=== PATIENT | male | born 1955 | race Caucasian/White ===

== ENCOUNTER 2021-04-03 20:35 | Inpatient (IN) ==
--- NOTE | 2021-04-03 20:43 | Emergency Department Note ---
Impression & Plan Elevated troponin I level, Viral illness, Fever, CKD (chronic kidney disease) ED Provider Note NAME: JACIEL TAY AGE: 66 SEX: M : 1955 ARRIVES VIA: Ambulance INFORMANT: Patient, ED PROVIDER(S): Joshua Garcia MD Chief Complaint: Chills, rigors HPI: He does present from [facility] due to concern for chills and rigors. The patient does complain of some general malaise weakness and fatigue ongoing since Friday and is progressively gotten worse. Patient is vaccinated for COVID-19 as well as the flu. The patient does complain of a productive cough but is unsure if it is discolored. Patient does have history of smoking but no formal history of any heart or lung disease. The patient did have low-grade temperature and was noted to have chills. Patient denies any chest pains or shortness of breath. Patient denies any nausea or vomiting. ROS: See HPI for pertinent positives and negatives. A total of 10 systems were reviewed and otherwise negative. Past medical history: See below Surgical history: See below Social history: See below Physical Exam: GENERAL: Fatigued in appearance, NAD, wearing glasses, wearing a mask, non- toxic. EYE EXAM: Normal conjunctiva. PERRL, no anisocoria and EOM's grossly intact w/o pain. NECK: Supple, no nuchal rigidity, no adenopathy, non-tender. No signs of meningismus. LUNGS: Scant wheezes. Normal chest wall mechanics. HEART: NSR, no MRG. ABDOMEN: Abdomen soft, non-tender, normo-active bowel sounds, no masses, no rebound or guarding. BACK: No CVA TTP. SKIN: No rashes and no bruising. UPPER EXTREMITIES: Upper extremities are grossly normal. LOWER EXTREMITIES: Grossly normal, no edema. Negative Homans' sign bilaterally. NEURO EXAM: A&O x3, cranial nerves II-XII grossly intact, normal speech, moves all 4 extremities on command w/o issue. Differential diagnoses: Viral syndrome, otitis, pharyngitis, pneumonia, influenza, meningitis, urinary tract infection, sepsis, bacteremia, as well as other pathologies. Course: Patient was seen and evaluated the bedside. Full history physical exam was performed. EKG interpreted by me Normal sinus rhythm, rate of 91, normal intervals, borderline elevation in V2 but not in contiguous leads, T wave inversion in 3 and aVF. Imaging Studies: 1 view chest x-ray No obvious consolidation pneumothorax or pleural effusion. Cardiac monitoring: An order was placed for continuous cardiac monitoring. The monitor shows a rate of 88 with sinus rhythm. MDM: Patient did present with a viral type symptoms. Blood work was obtained and the patient was given antipyretics. Patient does have a white count of 13 with a virtually normal hemoglobin at 13.8. Kidney function shows a creatinine of 2 unsure as to baseline. The patient does have prerenal azotemia. Very mild hypermagnesemia. Troponin I of 0.188. The patient did have a slight elevation in V2 but not in contiguous leads there is no obvious concavity. Patient does not complain of chest pains or shortness of breath the patient has complained more of viral type symptoms with a low-grade fever and rigors. I did speak with the on-call hospitalist and the patient was admitted to the medicine service Dr. Diaz. Covid RSV and flu negative. Chest x-ray by my read does not show any obvious pneumonia. Patient was ordered full dose aspirin as a precaution. On repeat evaluation of the patient the patient had no chest pain or shortness of breath. Past Med/Surg History Medical History No pertinent past medical history Surgical History No pertinent past surgical history Social History Smoking Status: Former smoker Tobacco Type: Cigarettes Feels Safe at Home: Yes Immunizations: Vaccinated for COVID-19 as well as the flu Allergies Allergies Allergy/AdvReac Type Severity Reaction Status Date / Time morphine Allergy Unknown Unknown Verified 04/03/21 21:37 Home Meds Home Medications Medication Instructions Recorded Confirmed acetaminophen 500 mg tablet 500 mg PO TID PRN 04/03/21 04/03/21 cyanocobalamin (vitamin B-12) 1,000 mcg SUBCUT WK 04/03/21 04/03/21 1,000 mcg/mL injection solution ibuprofen 600 mg tablet 600 mg PO TID PRN 04/03/21 04/03/21 tamsulosin 0.4 mg capsule 0.4 mg PO HS 04/03/21 04/03/21 Results & Data (ED) Vital Signs Vital Signs - 24 hr 04/03/21 20:52 04/03/21 20:55 04/03/21 21:00 Temperature 37.6 C H Temperature Source Oral Pulse Rate 90 92 H 90 Pulse Rate from SpO2 Sensor Respiratory Rate 20 24 23 Respiratory Effort / Characteristics Non-Labored Respiratory Depth Normal Blood Pressure 112/57 L 109/59 L Blood Pressure Mean 75 75 Pulse Oximetry 93 93 91 Oxygen Delivery Method Room Air Room Air Room Air Sepsis Recent Fever Within 48 Hours Yes Sepsis New/Unexplained Change in Mental Status No Sepsis Action Taken by Nursing No Action Required 04/03/21 21:02 04/03/21 21:10 04/03/21 21:20 Temperature Temperature Source Pulse Rate 88 84 Pulse Rate from SpO2 Sensor Respiratory Rate 23 18 Respiratory Effort / Characteristics Respiratory Depth Blood Pressure Blood Pressure Mean Pulse Oximetry 92 92 91 Oxygen Delivery Method Room Air Room Air Room Air Sepsis Recent Fever Within 48 Hours Sepsis New/Unexplained Change in Mental Status Sepsis Action Taken by Nursing 04/03/21 21:30 04/03/21 21:40 04/03/21 21:50 Temperature Temperature Source Pulse Rate 90 87 85 Pulse Rate from SpO2 Sensor Respiratory Rate 23 23 21 Respiratory Effort / Characteristics Respiratory Depth Blood Pressure Blood Pressure Mean Pulse Oximetry 93 92 93 Oxygen Delivery Method Room Air Room Air Room Air Sepsis Recent Fever Within 48 Hours Sepsis New/Unexplained Change in Mental Status Sepsis Action Taken by Nursing 04/03/21 22:00 04/03/21 22:02 04/03/21 22:10 Temperature Temperature Source Pulse Rate 83 83 Pulse Rate from SpO2 Sensor Respiratory Rate 22 21 Respiratory Effort / Characteristics Respiratory Depth Blood Pressure 105/56 L Blood Pressure Mean 72 Pulse Oximetry 91 98 92 Oxygen Delivery Method Room Air Room Air Room Air Sepsis Recent Fever Within 48 Hours Sepsis New/Unexplained Change in Mental Status Sepsis Action Taken by Nursing 04/03/21 22:20 04/03/21 22:30 04/03/21 22:40 Temperature Temperature Source Pulse Rate 82 84 80 Pulse Rate from SpO2 Sensor Respiratory Rate 20 21 23 Respiratory Effort / Characteristics Respiratory Depth Blood Pressure Blood Pressure Mean Pulse Oximetry 92 93 92 Oxygen Delivery Method Room Air Room Air Room Air Sepsis Recent Fever Within 48 Hours Sepsis New/Unexplained Change in Mental Status Sepsis Action Taken by Nursing 04/03/21 22:50 04/03/21 23:00 04/03/21 23:10 Temperature Temperature Source Pulse Rate 79 77 77 Pulse Rate from SpO2 Sensor Respiratory Rate 18 21 24 Respiratory Effort / Characteristics Respiratory Depth Blood Pressure 94/50 L Blood Pressure Mean 64 Pulse Oximetry 93 93 93 Oxygen Delivery Method Room Air Room Air Room Air Sepsis Recent Fever Within 48 Hours Sepsis New/Unexplained Change in Mental Status Sepsis Action Taken by Nursing 04/03/21 23:20 04/03/21 23:30 04/03/21 23:40 Temperature Temperature Source Pulse Rate 78 75 69 Pulse Rate from SpO2 Sensor 77 Respiratory Rate 18 18 17 Respiratory Effort / Characteristics Respiratory Depth Blood Pressure Blood Pressure Mean Pulse Oximetry 93 93 92 Oxygen Delivery Method Room Air Room Air Room Air Sepsis Recent Fever Within 48 Hours Sepsis New/Unexplained Change in Mental Status Sepsis Action Taken by Nursing 04/03/21 23:50 04/04/21 00:00 04/04/21 00:10 Temperature Temperature Source Pulse Rate 74 74 75 Pulse Rate from SpO2 Sensor Respiratory Rate 22 20 22 Respiratory Effort / Characteristics Respiratory Depth Blood Pressure 94/52 L Blood Pressure Mean 66 Pulse Oximetry 94 93 93 Oxygen Delivery Method Room Air Room Air Room Air Sepsis Recent Fever Within 48 Hours Sepsis New/Unexplained Change in Mental Status Sepsis Action Taken by Nursing 04/04/21 00:20 04/04/21 00:30 04/04/21 00:40 Temperature Temperature Source Pulse Rate 80 75 76 Pulse Rate from SpO2 Sensor Respiratory Rate 23 21 22 Respiratory Effort / Characteristics Respiratory Depth Blood Pressure Blood Pressure Mean Pulse Oximetry 93 93 94 Oxygen Delivery Method Room Air Room Air Room Air Sepsis Recent Fever Within 48 Hours Sepsis New/Unexplained Change in Mental Status Sepsis Action Taken by Nursing 04/04/21 00:50 Temperature Temperature Source Pulse Rate 75 Pulse Rate from SpO2 Sensor Respiratory Rate 24 Respiratory Effort / Characteristics Respiratory Depth Blood Pressure Blood Pressure Mean Pulse Oximetry 93 Oxygen Delivery Method Room Air Sepsis Recent Fever Within 48 Hours Sepsis New/Unexplained Change in Mental Status Sepsis Action Taken by Nursing Laboratory Data Result diagrams: 04/04/21 04:45 04/04/21 04:45 Lab Results 04/03/21 04/03/21 04/03/21 Range/Units Unknown Unknown Unknown WBC 13.27 H (4.8-10.8) K/uL RBC 4.50 L (4.7-6.1) M/uL Hgb 13.8 L (14.0-18.0) g/dL Hct 40.9 L (42-52) % MCV 90.9 (80-100) fL MCH 30.7 (25-34) pg MCHC 33.7 (32-36) g/dL RDW Std Deviation 42.5 (36.4-46.3) fL RDW Coeff of Rogerio 12.6 (11.5-14.5) % Plt Count 242 (130-400) K/uL MPV 10.1 (7.4-10.4) fL Immature Gran % (Auto) 0.2 % Neut % (Auto) 91.6 % Lymph % (Auto) 3.8 % Alfalfa % (Auto) 4.1 % Eos % (Auto) 0.2 % Baso % (Auto) 0.1 % Neut # (Auto) 12.17 H (1.4-6.5) K/uL Lymph # (Auto) 0.50 L (1.2-3.4) K/uL Alfalfa # (Auto) 0.54 (0.11-0.59) K/uL Eos # (Auto) 0.02 (0-0.5) K/uL Baso # (Auto) 0.01 (0-0.2) K/uL Immature Gran # (Auto) 0.03 H (0.00-0.02) K/uL Sodium 135 L (136-145) mmol/L Potassium 4.8 (3.5-5.1) mmol/L Chloride 103 (98-107) mmol/L Carbon Dioxide 26 (21-32) mmol/L Anion Gap 6.0 (3-11) BUN 44 H (7-18) mg/dl Creatinine 2.06 H (0.6-1.4) mg/dl Est Cr Clr Drug Dosing 39.8 ml/min Est GFR ( Amer) 38.3 ml/min Est GFR (Non-Af Amer) 33.1 ml/min BUN/Creatinine Ratio 21.5 H (10-20) Glucose 111 H (70-99) mg/dl Calcium 9.0 (8.5-10.1) mg/dl Magnesium 2.5 H (1.8-2.4) mg/dl Total Bilirubin 0.9 (0.2-1) mg/dl AST 34 (15-37) U/L ALT 30 (12-78) Alkaline Phosphatase 114 (45-117) U/L Troponin I 0.188 H* (0-0.045) ng/ml Total Protein 7.6 (6.4-8.2) gm/dl Albumin 2.8 L (3.4-5.0) gm/dl Globulin 4.8 H (2.5-4.0) gm/dl Albumin/Globulin Ratio 0.6 L (0.9-2) TSH 0.613 (0.300-4.500) uIu/ml SARS-CoV-2 (PCR) NEGATIVE (Negative) Influenza Type A (PCR) Negative (Neg) Influenza Type B (PCR) Negative (Neg) RSV (RT-PCR) Negative (Neg) Administered Medications Enoxaparin Sodium (Enoxaparin Inj 40 Mg/0.4 Ml Syr) 40 mg SQ Q24H [facility] Stop: 05/04/21 08:59 Last Admin: 04/04/21 08:57 Dose: 40 mg Documented by: [id number] Sodium Chloride (Nss 1000ml) 1,000 mls @ 125 mls/hr IV .Q8H [facility] Stop: 05/04/21 03:29 Last Admin: 04/04/21 13:49 Dose: 125 mls/hr Documented by: [id number] Infusion: 04/04/21 13:03 Dose: 0 mls/hr Documented by: [id number] Admin: 04/04/21 04:58 Dose: 125 mls/hr Documented by: [id number] Ceftriaxone Sodium 2,000 mg/ (Dextrose) 50 mls @ 100 mls/hr IV Q24H [facility]; Protocol Stop: 04/06/21 03:59 Last Infusion: 04/04/21 05:50 Dose: 0 mls/hr Documented by: [id number] Admin: 04/04/21 04:57 Dose: 100 mls/hr Documented by: [id number] Azithromycin 500 mg/ Dextrose 255 mls @ 125 mls/hr IV Q24H [facility] Stop: 04/07/21 08:59 Last Infusion: 04/04/21 12:15 Dose: 0 mls/hr Documented by: [id number] Admin: 04/04/21 08:57 Dose: 125 mls/hr Documented by: [id number] Methylprednisolone 40 mg/ (Syringe) 0.64 mls @ 1.5 mls/min IV Q8H [facility] Stop: 05/04/21 09:59 Last Admin: 04/04/21 08:57 Dose: 1.5 mls/min Documented by: [id number] Discontinued Medications Acetaminophen (Acetaminophen 500 Mg Tab) 1,000 mg PO NOW STA Stop: 04/03/21 20:56 Last Admin: 04/03/21 21:49 Dose: 1,000 mg Documented by: [id number] Albuterol (Albut/Ipratrop 3mg/0.5mg Neb 3 Ml Vial) 3 ml NEB QIDR JACINDA Stop: 05/04/21 06:59 Last Admin: 04/04/21 14:02 Dose: 3 ml Documented by: [id number] Admin: 04/04/21 10:08 Dose: 3 ml Documented by: [id number] Admin: 04/04/21 07:07 Dose: 3 ml Documented by: [id number] Aspirin (Aspirin Chew 324 Mg) 324 mg PO NOW STA Stop: 04/04/21 01:22 Last Admin: 04/04/21 01:33 Dose: 324 mg Documented by: [id number] Sodium Chloride (Nss 1000ml) 1,000 mls @ 999 mls/hr IV .Q1H1M JACINDA Stop: 04/03/21 22:00 Last Infusion: 04/03/21 23:08 Dose: 999 mls/hr Documented by: [id number] Admin: 04/03/21 21:50 Dose: 999 mls/hr Documented by: [id number] Methylprednisolone (Methylprednisolone 125 Mg/2 Ml Vial) 125 mg IV NOW STA Stop: 04/04/21 01:19 Last Admin: 04/04/21 01:33 Dose: 125 mg Documented by: [id number] Ondansetron HCl (Ondansetron Inj 2 Mg/Ml 2 Ml Vial) 4 mg IV NOW STA Stop: 04/03/21 20:56 Last Admin: 04/03/21 21:49 Dose: 4 mg Documented by: [id number] Imaging Data Radiologist's Impression: Chest X-Ray 04/03/21 20:56 XR chest 1V portable CLINICAL HISTORY: Weakness. COMPARISON STUDY: No previous studies for comparison. FINDINGS: Left clavicular internal fixation is noted. No pneumothorax or pleural effusion. Cardiac size is at upper limits of normal. There is subtle lower lung interstitial thickening without overt pulmonary edema. Both maryjo are prominent. No consolidation is identified IMPRESSION: 1. No consolidation to suggest pneumonia. 2. Subtle nonspecific lower lung interstitial thickening. 3. Symmetric bilateral hilar prominence. Although nonspecific, this is likely due to pulmonary vessels. Lymphadenopathy could appear similar. ACT 112: Negative or not required by law. Electronically signed by: Aaron Martin M.D. 04/04/2021 8:11 AM Discharge Plan Visit Data Chief Complaint: Shortness of Breath/Dyspnea Stated Complaint: cough ED Provider: Joshua Garcia Discharge Problem: Elevated troponin I level, Viral illness, Fever, CKD (chronic kidney disease) Patient Disposition: Admitted As Inpatient Discharge Instructions Interventions: ED Discharge Assessment Last Done: 04/04/21 03:30
[2021-04-03] MEDS ORDERED: ONDANSETRON INJ 2 MG/ML 2 ML VIAL IV STA (20:55)
[2021-04-03] MEDS ORDERED: ACETAMINOPHEN 500 MG TAB PO STA (20:55)
[2021-04-03] MEDS ORDERED: SODIUM CHLORIDE 0.9% 1000ML 1,000 ML IV SCH (21:00)
[2021-04-03 22:06] LABS: Basophils # (auto) 0.01 K/uL (0-0.2); Basophils % (auto) 0.1 %; Eosinophils # (auto) 0.02 K/uL (0-0.5); Eosinophils % (auto) 0.2 %; Hematocrit (blood only) 40.9 % (42-52); Hemoglobin 13.8 g/dL (14.0-18.0); Immature Granulocytes # (auto) 0.03 K/uL (0.00-0.02); Immature Granulocytes % (auto) 0.2 %; Lymphocytes % (auto) 3.8 %; Mean Corpuscular Hemoglobin 30.7 pg (25-34); Mean Corpuscular Hgb Conc 33.7 g/dL (32-36); Mean Corpuscular Volume 90.9 fL (80-100); Mean Platelet Volume 10.1 fL (7.4-10.4); Monocytes # (auto) 0.54 K/uL (0.11-0.59); Monocytes % (auto) 4.1 %; Neutrophils # (auto) 12.17 K/uL (1.4-6.5); Neutrophils % (auto) 91.6 %; Platelet Count 242 K/uL (130-400); RDW Coefficient of Variation 12.6 % (11.5-14.5); RDW Standard Deviation 42.5 fL (36.4-46.3); White Blood Count 13.27 K/uL (4.8-10.8)
[2021-04-03 22:22] LABS: Albumin Level 2.8 gm/dl (3.4-5.0); BUN Creatinine Ratio 21.5 (10-20); Creatinine Clr Calc Pharmacy 39.8 ml/min; Est GFR (African American) 38.3 ml/min; Est GFR (Non-African American) 33.1 ml/min; Magnesium 2.5 mg/dl (1.8-2.4); Potassium 4.8 mmol/L (3.5-5.1)
[2021-04-03 22:43] LABS: Influenza A virus by PCR Negative (Neg); Influenza B virus by PCR Negative (Neg); RSV by PCR Negative (Neg); SARS CoV2 RNA(COVID-19) InHosp NEGATIVE (Negative)
[2021-04-03 22:44] LABS: Albumin Globulin Ratio 0.6 (0.9-2); Bilirubin,Total 0.9 mg/dl (0.2-1); Globulin 4.8 gm/dl (2.5-4.0); Thyroid Stimulating Hormone 0.613 uIu/ml (0.300-4.500); Total Protein 7.6 gm/dl (6.4-8.2); Troponin I 0.188 ng/ml (0-0.045)
--- NOTE | 2021-04-04 01:16 | History & Physical Report ---
Date of Service April 04, 2021 Assessment & Plan (1) Shortness of breath: Plan: Previously healthy 66 yo M w/o significant past medical history presents with chills, rigors, malaise, productive cough and shortness of breath COPD exacerbation, potentially brought on by a viral URI significant smoking history and wheeze on exam - solu medrol 125 mg IV ordered followed by 40 mg Q8H - Azithromycin - Duonebs ordered - consider outpatient PFT's for formal diagnosis Concern for bacteremia potential source would be left hand skin infection hypotension, chills, fatigue, sweats, WBC 13 - ordered lactate - blood cultures ordered - empiric Ceftriaxone ordered Elevated Troponin - @ 0.188 potentially supply demand mis-match 2/2 COPD exacerbation vs. bacteremia Potentially ACS as cause for symptoms of fatigue and shortness of breath denies chest pain - A1c and lipid profile for risk stratification - trend troponin - ECHO ordered - cardiology consulted BPH - continue Tamsulosin Diet: regular DVT: Lovenox Code: full code History of Present Illness Chief Complaint: shortness of breath [facility] from [facility] with 4 days of chills, rigors, malaise, weakness, fatigue and productive cough and shortness of breath. Overall he has been feeling, "not well". He has no significant prior medical history with the exception of BPH. He has been vaccinated against COVID-19 and flu. He does not have any sick contacts. 2 weeks ago he had a infection on his right hand and had it lanced. Social hx. 50 pack year history of smoking denies IVDU Allergies Allergy/AdvReac Type Severity Reaction Status Date / Time morphine Allergy Unknown Unknown Verified 04/03/21 21:37 Home Medications Medication Instructions Recorded Confirmed Type acetaminophen 500 mg tablet 500 mg PO TID PRN 04/03/21 04/03/21 History cyanocobalamin (vitamin B-12) 1,000 mcg SUBCUT WK 04/03/21 04/03/21 History 1,000 mcg/mL injection solution ibuprofen 600 mg tablet 600 mg PO TID PRN 04/03/21 04/03/21 History tamsulosin 0.4 mg capsule 0.4 mg PO HS 04/03/21 04/03/21 History Past Med/Surg History Social History Smoking Status: Former smoker Tobacco Type: Cigarettes Feels Safe at Home: Yes Review of Systems Review of Systems: Constitutional: denies fevers, weight loss, nausea, vomiting admits chills, fatigue diaphoresis Head: denies trauma, LOC, vision changes Neurologic: denies syncope, focal weakness, numbness, tingling ENT: admits rhinorrhea, sore throat Cardiac: denies chest pain, palpitations, leg edema Pulm.: denies hemoptysis, sputum production admits cough, shortness of breath GI: denies diarrhea, constipation, blood in stool : denies polyuria, dysuria Physical Exam Constitutional: well developed and well nourished; no acute distress Eyes: PERRL, conjunctivae normal, anicteric sclerae ENMT: external ear and nose normal, oropharynx normal Neck: normal visual inspection Respiratory: normal respiratory effort; no labored breathing Auscultation: + wheezes; no crackles, no rales and no rhonchi Cardiovascular: RRR, no murmur, no edema Gastrointestinal (Abdomen): normal bowel sounds, soft, nontender, no hepatosplenomegaly Skin: - left hand with raised erythematous area over distal phalanx Neurologic: no focal motor deficits Psychiatric: A+Ox3, euthymic affect Results & Data Results & Data ([facility]) Vital Signs (Past 12 Hours) Vital Signs Temp Pulse Resp BP Pulse Ox 04/03/21 23:10 77 24 93 04/03/21 23:00 77 21 94/50 L 93 04/03/21 22:50 79 18 93 04/03/21 22:40 80 23 92 04/03/21 22:30 84 21 93 04/03/21 22:20 82 20 92 04/03/21 22:10 83 21 92 04/03/21 22:02 98 04/03/21 22:00 83 22 105/56 L 91 04/03/21 21:50 85 21 93 04/03/21 21:40 87 23 92 04/03/21 21:30 90 23 93 04/03/21 21:20 84 18 91 04/03/21 21:10 88 23 92 04/03/21 21:02 92 04/03/21 21:00 90 23 109/59 L 91 04/03/21 20:55 92 H 24 93 04/03/21 20:52 37.6 C H 90 20 112/57 L 93 Code Status & VTE Plan VTE Prophylaxis Plan VTE Prophylaxis will be ordered: Yes
[2021-04-04] MEDS ORDERED: methylPREDNISolone 125 MG/2 ML VIAL IV STA (01:18)
[2021-04-04] MEDS ORDERED: ASPIRIN CHEW 324 MG PO STA (01:21)
[2021-04-04] MEDS ORDERED: IBUPROFEN 600 MG TAB PO PRN (03:30)
[2021-04-04] MEDS ORDERED: ACETAMINOPHEN 500 MG TAB PO PRN (03:52)
[2021-04-04] MEDS: cefTRIAXone SODIUM 2,000 MG in DEXTROSE 5% 50 ML IV SCH (04:57)
[2021-04-04] MEDS: SODIUM CHLORIDE 0.9% 1000ML 1,000 ML IV SCH ×3 (04:58→21:56)
[2021-04-04 05:38] LABS: Basophils # (auto) 0.02 K/uL (0-0.2); Basophils % (auto) 0.2 %; Eosinophils # (auto) 0.16 K/uL (0-0.5); Eosinophils % (auto) 1.2 %; Hematocrit (blood only) 40.4 % (42-52); Hemoglobin 13.5 g/dL (14.0-18.0); Immature Granulocytes # (auto) 0.06 K/uL (0.00-0.02); Immature Granulocytes % (auto) 0.5 %; Lymphocytes # (auto) 0.71 K/uL (1.2-3.4); Lymphocytes % (auto) 5.5 %; Mean Corpuscular Hemoglobin 30.5 pg (25-34); Mean Corpuscular Hgb Conc 33.4 g/dL (32-36); Mean Corpuscular Volume 91.4 fL (80-100); Mean Platelet Volume 10.2 fL (7.4-10.4); Monocytes # (auto) 0.66 K/uL (0.11-0.59); Monocytes % (auto) 5.1 %; Neutrophils # (auto) 11.33 K/uL (1.4-6.5); Neutrophils % (auto) 87.5 %; Platelet Count 236 K/uL (130-400); RDW Coefficient of Variation 12.8 % (11.5-14.5); RDW Standard Deviation 42.9 fL (36.4-46.3); Red Blood Count 4.42 M/uL (4.7-6.1); White Blood Count 12.94 K/uL (4.8-10.8)
[2021-04-04 06:07] LABS: BUN Creatinine Ratio 24.3 (10-20); Calcium 8.6 mg/dl (8.5-10.1); Creatinine Clr Calc Pharmacy 42.9 ml/min; Est GFR (Non-African American) 36.2 ml/min; Potassium 4.4 mmol/L (3.5-5.1)
[2021-04-04] MEDS: ALBUT/IPRATROP 3MG/0.5MG NEB 3 ML VIAL NEB SCH ×3 (07:07→14:02)
[2021-04-04 07:34] LABS: Estimated Average Glucose 108 mg/dl; Hemoglobin A1C 5.4 % (4.5-5.6)
--- NOTE | 2021-04-04 08:12 | XRay Report ---
XR chest 1V portable CLINICAL HISTORY: Weakness. COMPARISON STUDY: No previous studies for comparison. FINDINGS: Left clavicular internal fixation is noted. No pneumothorax or pleural effusion. Cardiac si ze is at upper limits of normal. There is subtle lower lung interstitial thickening without overt pul monary edema. Both maryjo are prominent. No consolidation is identified IMPRESSION: 1. No consolidation to suggest pneumonia. 2. Subtle nonspecific lower lung interstitial thickening. 3. Symmetric bilateral hilar prominence. Although nonspecific, this is likely due to pulmonary vessel s. Lymphadenopathy could appear similar. ACT 112: Negative or not required by law. Electronically signed by: Aaron Martin M.D. 04/04/2021 8:11 AM
[2021-04-04] MEDS: AZITHROMYCIN 500 MG in DEXTROSE 5% 250 ML IV SCH (08:57)
[2021-04-04] MEDS: ENOXAPARIN INJ 40 MG/0.4 ML SYR SQ SCH (08:57)
[2021-04-04] MEDS: methylPREDNISolone 40 MG in SYRINGE 0 ML IV SCH ×2 (08:57→19:44)
--- NOTE | 2021-04-04 14:26 | XCELERA ---
[id number]
--- NOTE | 2021-04-04 15:51 | Electrocardiogram Report ---
Test Reason : Blood Pressure : / mmHG Vent. Rate : 091 BPM Atrial Rate : 091 BPM P-R Int : 134 ms QRS Dur : 098 ms QT Int : 332 ms P-R-T Axes : 000 -21 -29 degrees QTc Int : 408 ms Normal sinus rhythm Low voltage QRS Borderline ECG No previous ECGs available Confirmed by Kwame Amador ([id number]) on 04/04/2021 3:51:14 PM Referred By: [facility] Confirmed By:Kwame Amador
--- NOTE | 2021-04-04 16:06 | Communication Note ---
Date of Service: 2020 BRIDGE NOTE ~4 days of fatigue. Arms OK. Resting hand tremor. CTAB, RRR. L 3rd digit with DIP with mild erythema, minimal pian. Pt reports was lanced with pus drained 2 weeks ago at [facility]. Flexion/extension of DIP intact. No chest pain/chest pressure. Some tightness with breathing, denies wheezing. tobacco use former as noted below. +difficulty urinating (urgency, but difficulty voiding). UA pending. Echo: Left ventricular systolic function normal. EF 60-65%. No regional wall motion abnormalities. Leukocytosis slightly downtrending, creatinine downtrending 2.06-1.91 troponin 0.188, trended EKG:. No territorial ST/T wave changes. QTc 408. Normal sinus rhythm. Acute on chronic COPD exacerbation Continue methyl prednisolone 40 mg every 8 hours, decrease to twice daily 04/03 Continue azithromycin x5-day dose DuoNebs as needed No PFTs available for review. Pt Thinks he had them before alf and we're wnl bu not sure. CXR: No consolidation to suggest pneumonia, nonspecific lower interstitial thickening, symmetrical bilateral hilar prominence nonspecific likely due to pulmonary vessels. Covid negative Flu A/flu B/RSV negative - Smoked cigarettes from age 17, no use in alf (e-cigarettes). Average up to 2ppd. - +nicotine patch L Hand Distal 3rd DIP Cellulitis Leukocytosis on admit, downtrending Lactate Blood cultures pending - Reportedly with paronychia lanced 2 weeks prior to presentation - Full range of motion, NT on exam. No purulence or fluctuance - Continue empiric rocephin pending above and below eval, if neg and bc neg will narrow to keflex x5 days Troponin elevation 0.188, suspect demand ischemia in the setting of COPD exacerbation versus cellulitis. Trended Echo reviewed, without territorial changes and with normal systolic function Cardiology consulted Lipids: 123 Tri/cholesterol 133/LDL 77/HDL 31 BPH Continue tamsulosin - Put reports urge to void, but difficulty urinating - UA/UC pending - Bladder scan pending for residual Acute kidney injury Creatinine acutely elevated to 2.06 on admission - Clinically volume depleted. Continue IVFM Down trended to 1.91 No prior labs for review, unclear baseline Unclear if underlying chronic kidney disease, BMP daily continue to follow - Post-renal eval with scan for BPH as above
[2021-04-04] MEDS ORDERED: ALBUT/IPRATROP 3MG/0.5MG NEB 3 ML VIAL NEB PRN (17:23)
[2021-04-04] MEDS: TAMSULOSIN HCL 0.4 MG CAP PO SCH (19:45)
[2021-04-05] MEDS: methylPREDNISolone 40 MG in SYRINGE 0 ML IV SCH ×2 (02:36→10:38)
[2021-04-05] MEDS: cefTRIAXone SODIUM 2,000 MG in DEXTROSE 5% 50 ML IV SCH (04:48)
--- NOTE | 2021-04-05 04:56 | Billing Data ---
Date of Service April 05, 2021 Coding Level of Care Code 57272 Initial Inpt Care Lvl 3
[2021-04-05 06:09] LABS: Hematocrit (blood only) 37.1 % (42-52); Hemoglobin 12.2 g/dL (14.0-18.0); Immature Granulocytes # (auto) 0.03 K/uL (0.00-0.02); Immature Granulocytes % (auto) 0.4 %; Mean Corpuscular Hemoglobin 30.2 pg (25-34); Mean Corpuscular Hgb Conc 32.9 g/dL (32-36); Mean Corpuscular Volume 91.8 fL (80-100); Mean Platelet Volume 10.3 fL (7.4-10.4); Monocytes # (auto) 0.32 K/uL (0.11-0.59); Neutrophils # (auto) 7.25 K/uL (1.4-6.5); Neutrophils % (auto) 90.6 %; Platelet Count 248 K/uL (130-400); RDW Coefficient of Variation 12.9 % (11.5-14.5); RDW Standard Deviation 43.9 fL (36.4-46.3); Red Blood Count 4.04 M/uL (4.7-6.1)
[2021-04-05 07:10] LABS: BUN Creatinine Ratio 30.6 (10-20); Calcium 8.3 mg/dl (8.5-10.1); Creatinine Clr Calc Pharmacy 68.3 ml/min; Est GFR (African American) 73.6 ml/min; Est GFR (Non-African American) 63.5 ml/min; Potassium 4.6 mmol/L (3.5-5.1)
[2021-04-05] MEDS: ENOXAPARIN INJ 40 MG/0.4 ML SYR SQ SCH (08:29)
[2021-04-05] MEDS: AZITHROMYCIN 500 MG in DEXTROSE 5% 250 ML IV SCH (10:36)
[2021-04-05] MEDS: SODIUM CHLORIDE 0.9% 1000ML 1,000 ML IV SCH ×2 (10:37→11:08)
--- NOTE | 2021-04-05 12:50 | Cardiology Consultation ---
Date of Consultation April 05, 2021 Assessment & Plan (1) Elevated troponin I level: (2) Dyslipidemia: (3) Acute renal insufficiency: (4) Fever: (5) Shortness of breath: ASSESSMENT/PLAN: 1. Elevated troponin: Troponin elevated, diagnostic of CO, however he did not present with acute coronary syndrome but rather symptoms more consistent with infection. Risk factors for CAD include significant prior tobacco abuse an self reported dyslipidemia. When he recovers from his acute illness, would consider outpatient nonischemic evaluation such as exercise stress echo or pharmacologic myocardial perfusion study if unable to walk sufficiently on treadmill. Given risk factors, would recommend aspirin therapy 81 mg daily. LDL already well controlled without medical therapy. Would not start beta-dev given mild hypotension. 2. Shortness of breath: Chronic issue without acute worsening. Occurs with exertion. Being treated for COPD exacerbation by hospitalist service. He appears euvolemic. 3. Acute renal insufficiency: Labs suggested azotemia on presentation and renal function has since improved. As per primary service. 4. Fever: As per primary service. Blood culture is negative. Overall, patient feels much improved. 5. Dyslipidemia: He self reports a history of dyslipidemia. LDL is well controlled. HDL is mildly low. 6. Disposition: Recommend outpatient noninvasive ischemic evaluation as noted above. Patient care/plan discussed with Dr. Moran of the primary hospitalist service. Thank you for allowing me to participate in the care of your patient. Please call for any other questions or concerns. Sincerely, Teddy Johnson M.D. History of Present Illness Reason for Consultation: elevated troponin Requesting Physician: Giancarlo Moran MD Attending Physician: Giancarlo Moran MD History of Present Illness Mr. Oneill is a pleasant 66-year-old gentleman with a history significant for dyslipidemia (self-reported) who was admitted on 04/04/2021 for possible COPD exacerbation by the hospitalist service. He states that for the past few days leading up to his presentation, he felt quite fatigued, decreased energy, and malaise. He reports 1 week ago having an infected left third digit on his hand which apparently was lanced by the medical team at [facility], and took antibiotic therapy. His finger has since improved. Because he was unable to complete his usual work duties, he was sent to the medical team for evaluation prior to this presentation. He stated that he had a fever while there. He feels congested and has had a cough and 1 episode of diarrhea, although the diarrhea was 4 days ago. He does produce some sputum but states that he swallows it and has not visualized the sputum. He has had some shaking chills, including, per records, while here. Since admission, he is already feeling much better. He states that he chronically has lightheadedness when he changes positions quickly. He denies syncope. He has chronic shortness of breath with activity, but no acute worsening recently. He denies any form of chest discomfort. He denies melena, hematochezia, hematuria, abdominal pain, nausea, or vomiting. While here, he had a troponin performed on presentation which was elevated at 0.188 on 04/03/2021. His next troponin was on 04/04/2021 at 3.27 at 4:13 p.m., which declined to 0.574 this morning. An echo was done on 04/04/2021, which demonstrated normal LV systolic function and wall motion. Review of systems: As above. Review of systems otherwise negative/unremarkable. Family history: No known premature CAD. Social history: Smoked up to 2 packs per day but quit at the age of 62. He started smoking at the age of 17. Denies alcohol or drug abuse. . No children. Originally from [place]. Currently incarcerated at [facility]. He was accompanied by 2 correctional officers. Allergies Allergy/AdvReac Type Severity Reaction Status Date / Time morphine Allergy Unknown Unknown Verified 04/03/21 21:37 Home Medications Medication Instructions Recorded Confirmed Type acetaminophen 500 mg tablet 500 mg PO TID PRN 04/03/21 04/03/21 History cyanocobalamin (vitamin B-12) 1,000 mcg SUBCUT WK 04/03/21 04/03/21 History 1,000 mcg/mL injection solution ibuprofen 600 mg tablet 600 mg PO TID PRN 04/03/21 04/03/21 History tamsulosin 0.4 mg capsule 0.4 mg PO HS 04/03/21 04/03/21 History Patient History Medical History Dyslipidemia Surgical History No pertinent past surgical history Social History Smoking Status: Former smoker Tobacco Type: Cigarettes Hx Alcohol Use: No Hx Substance Use: No Preferred Language: Malay [employer]iller Helper Required: No Beliefs That Will Affect Care: None Current Living Situation: Other Current Living Situation Comment: [facility] - prisoner Feels Safe at Home: Yes Assistive Devices: None Physical Exam Physical Exam: Gen.: No acute distress. Alert and oriented. HEENT: Anicteric sclera. Neck: No JVD. No bruits. Normal carotid upstrokes bilaterally. Cardiac: PMI was nondisplaced. No ventricular heave. Regular. Normal S1-S2. No murmurs, rubs, or gallops. Pulmonary: Initially, bibasilar crackles that resolved with cough. Otherwise, clear to auscultation bilaterally. Abdomen: Soft, nontender, nondistended, with normoactive bowel sounds. No bruits noted. Extremities: 2+ radial pulses bilaterally. 2+ posterior tibialis pulses bilaterally. No edema or cyanosis. There were no visualized splinter hemorrhages, Janeway lesions, or Osler's nodes. No palpable cords. Psychiatric: Affect appears appropriate. Results & Data ([facility]) Vital Signs (Past 12 Hours) Vital Signs Temp Pulse Pulse Resp BP BP BP 04/05/21 11:35 36.5 C 68 20 93/54 L 04/05/21 10:00 81 04/05/21 09:20 36.4 C L 81 20 101/61 04/05/21 07:00 65 20 04/05/21 06:30 75 23 04/05/21 06:00 63 19 04/05/21 05:30 69 16 04/05/21 04:00 60 17 99/56 L 04/05/21 03:00 62 16 99/51 L 04/05/21 02:00 63 21 104/54 L 04/05/21 01:00 63 17 99/58 L Pulse Ox 04/05/21 11:35 93 04/05/21 10:00 04/05/21 09:20 93 04/05/21 07:00 94 04/05/21 06:30 91 04/05/21 06:00 96 04/05/21 05:30 94 04/05/21 04:00 94 04/05/21 03:00 93 04/05/21 02:00 95 04/05/21 01:00 93 Laboratory Results Laboratory Results - last 24 hr 04/04/21 04/05/21 04/05/21 16:13 05:58 05:58 WBC 8.00 RBC 4.04 L Hgb 12.2 L Hct 37.1 L MCV 91.8 MCH 30.2 MCHC 32.9 RDW Std Deviation 43.9 RDW Coeff of Rogerio 12.9 Plt Count 248 MPV 10.3 Immature Gran % (Auto) 0.4 Neut % (Auto) 90.6 Lymph % (Auto) 5.0 Ferry % (Auto) 4.0 Eos % (Auto) 0.0 Baso % (Auto) 0.0 Neut # (Auto) 7.25 H Lymph # (Auto) 0.40 L Ferry # (Auto) 0.32 Eos # (Auto) 0.00 Baso # (Auto) 0.00 Immature Gran # (Auto) 0.03 H Sodium 137 Potassium 4.6 Chloride 109 H Carbon Dioxide 23 Anion Gap 5.0 BUN 37 H Creatinine 1.20 D Est Cr Clr Drug Dosing 68.3 Est GFR ( Amer) 73.6 Est GFR (Non-Af Amer) 63.5 BUN/Creatinine Ratio 30.6 H Glucose 135 H Calcium 8.3 L Troponin I 3.270 H* 04/05/21 08:59 WBC RBC Hgb Hct MCV MCH MCHC RDW Std Deviation RDW Coeff of Rogerio Plt Count MPV Immature Gran % (Auto) Neut % (Auto) Lymph % (Auto) Ferry % (Auto) Eos % (Auto) Baso % (Auto) Neut # (Auto) Lymph # (Auto) Ferry # (Auto) Eos # (Auto) Baso # (Auto) Immature Gran # (Auto) Sodium Potassium Chloride Carbon Dioxide Anion Gap BUN Creatinine Est Cr Clr Drug Dosing Est GFR ( Amer) Est GFR (Non-Af Amer) BUN/Creatinine Ratio Glucose Calcium Troponin I 0.574 H* Diagnostic Findings Telemetry personally reviewed: Sinus rhythm. No arrhythmia. Echo 04/05/2021: Normal LV systolic function and wall motion. EF 60-65%. Mild MR. Echo images personally reviewed as well, demonstrating normal LV systolic function. ECG 04/03/2021 at 8:51 p.m.: Sinus rhythm 91 beats per minute. Medications Administered Current Inpatient Medications Acetaminophen (Acetaminophen 500 Mg Tab) 500 mg PO TID PRN PRN Reason: alternate with ibuprofen Stop: 05/04/21 03:51 Albuterol (Albut/Ipratrop 3mg/0.5mg Neb 3 Ml Vial) 3 ml NEB Q4R PRN PRN Reason: Shortness Of Breath Or Wheezing Stop: 05/04/21 18:59 Enoxaparin Sodium (Enoxaparin Inj 40 Mg/0.4 Ml Syr) 40 mg SQ Q24H JACINDA Stop: 05/04/21 08:59 Last Admin: 04/05/21 08:29 Dose: 40 mg Documented by: Sodium Chloride (Nss 1000ml) 1,000 mls @ 125 mls/hr IV .Q8H JACINDA Stop: 05/04/21 03:29 Last Admin: 04/05/21 11:08 Dose: Not Given Documented by: Ceftriaxone Sodium 2,000 mg/ (Dextrose) 50 mls @ 100 mls/hr IV Q24H [facility]; Protocol Stop: 04/06/21 03:59 Last Infusion: 04/05/21 06:23 Dose: Infused Documented by: Azithromycin 500 mg/ Dextrose 255 mls @ 125 mls/hr IV Q24H [facility] Stop: 04/07/21 08:59 Last Admin: 04/05/21 10:36 Dose: 125 mls/hr Documented by: Methylprednisolone 40 mg/ (Syringe) 0.64 mls @ 1.5 mls/min IV Q8H JACINDA Stop: 05/04/21 09:59 Last Admin: 04/05/21 10:38 Dose: 1.5 mls/min Documented by: Ibuprofen (Ibuprofen 600 Mg Tab) 600 mg PO TID PRN PRN Reason: fever/body aches Stop: 05/04/21 03:29 Tamsulosin HCl (Tamsulosin Hcl 0.4 Mg Cap) 0.4 mg PO HS [facility] Stop: 05/04/21 20:59 Last Admin: 04/04/21 19:45 Dose: 0.4 mg Documented by: PG Care Time/CCT Total # of Minutes Spent Total Time Spent with Patient: Total time spent is greater than 50% in coordination of care (as documented) at patient's floor/unit and/or counseling patient: Coding Level of Care Code 91723 Initial Inpt Care Lvl 3 Diagnoses Elevated troponin I level R77.8 Dyslipidemia E78.5 Acute renal insufficiency N28.9 Fever R50.9 Shortness of breath R06.02
--- NOTE | 2021-04-05 18:19 | Hospitalist Progress Note ---
Date of Service April 05, 2021 Assessment & Plan (1) COPD with acute exacerbation: Plan: Acute on chronic COPD exacerbation Continue methylprednisolone decreased from 3 times daily> twice daily. Discharge on short burst of prednisone. Continue azithromycin x5-day dose DuoNebs as needed No PFTs available for review. Pt Thinks he had them before retirement and we're wnl bu not sure. Recommend follow-up PFTs once recovered. CXR: No consolidation to suggest pneumonia, nonspecific lower interstitial thickening, symmetrical bilateral hilar prominence nonspecific likely due to pulmonary vessels. Covid negative Flu A/flu B/RSV negative - Smoked cigarettes from age 17, no use in retirement (e-cigarettes). Average up to 2ppd. (2) Cellulitis of left hand: Plan: L Hand Distal 3rd DIP Cellulitis Leukocytosis on admit, downtrending Lactate Blood cultures pending - Reportedly with paronychia lanced 2 weeks prior to presentation - Full range of motion, NT on exam. No purulence or fluctuance, mild erythema on admission -Improved to near resolved 04/05 We will complete a 5-day course with Keflex, blood cultures negative to date (3) Elevated troponin I level: Plan: Troponin elevation 0.188, suspect demand ischemia in the setting of COPD exacerbation versus cellulitis. Peaked at 3, then rapidly down trended 0.5 Echo reviewed, without territorial changes and with normal systolic function Cardiology consulted. Add aspirin 81 daily given risk factors, no beta-dev in the setting of mild hypertension, LDL well controlled. Outpatient nonischemic evaluation once recovered/outpatient stress echo versus perfusion study. Lipids: 123 Tri/cholesterol 133/LDL 77/HDL 31 (4) Dyslipidemia: (5) Acute renal insufficiency: Plan: Acute kidney injury Creatinine acutely elevated to 2.06 on admission - Clinically volume depleted. Continue IVFM Down trended and normalized -Voiding adequately (6) Shortness of breath: Plan: See above (7) BPH (benign prostatic hyperplasia): Plan: BPH Continue tamsulosin -Patient voiding adequately. Admission and Anticipated Discharge Date Admission Date: April 04, 2021 Subjective Greatly improved, feels nearly back to baseline. Eating well, remains with no chest pain, chest pressure, palpitations, lightheadedness, dizziness. Her troponin trended, echo normal. Fingers no pain today, patient voices no complaints or concerns. Review of Systems Review of Systems: All systems reviewed & are unremarkable except as noted in Subjective Physical Exam Physical Exam: General: A&Ox3. NAD. Cooperative. HEENT: Atraumatic, normocephalic. Pulm: CTAB A&P. -wheezes, -rales, -rhonchi. Symmetrical chest rise. No increase work of breathing. No respiratory distress. Cardiac: RRR, -mrg. Radial pulses intact and symmetrical. Extremities: Warm, dry, without edema Results & Data Results & Data ([facility]) Vital Signs (Past 12 Hours) Vital Signs Temp Pulse Pulse Resp BP BP Pulse Ox 04/05/21 07:00 65 20 94 04/05/21 06:30 75 23 91 04/05/21 06:00 63 19 96 04/05/21 05:30 69 16 94 04/05/21 04:00 60 17 99/56 L 94 04/05/21 03:00 62 16 99/51 L 93 04/05/21 02:00 63 21 104/54 L 95 04/05/21 01:00 63 17 99/58 L 93 04/05/21 00:00 69 21 107/62 96 04/04/21 23:38 36.9 C 66 16 108/59 L 95 04/04/21 23:00 69 20 108/59 L 95 04/04/21 22:00 67 19 103/60 95 04/04/21 21:00 84 21 112/64 93 PG Care Time/CCT Total # of Minutes Spent Total Time Spent with Patient: Total time spent is greater than 50% in coordination of care (as documented) at patient's floor/unit and/or counseling patient: Coding Level of Care Code 67730 Subseq Hosp Care Lvl 2 Diagnoses Elevated troponin I level R77.8 Dyslipidemia E78.5 Acute renal insufficiency N28.9 Shortness of breath R06.02 COPD with acute exacerbation J44.1 BPH (benign prostatic hyperplasia) N40.0 Cellulitis of left hand L03.114
[2021-04-05] MEDS: TAMSULOSIN HCL 0.4 MG CAP PO SCH (20:39)
[2021-04-05] MEDS ORDERED: methylPREDNISolone 40 MG in SYRINGE 0 ML IV SCH (22:00)
[2021-04-06 04:21] LABS: Appearance Urine Clear (Clear); Bilirubin Urine Negative (Negative); Blood Urine Negative (Negative); Color Urine Yellow; Glucose Urine UA Negative (Negative); Ketones Urine Negative (Negative); Leukocyte Esterase Urine Negative (Negative); Nitrite Urine Negative (Negative); Protein Urine Negative (Negative); Specific Gravity Urine 1.022 (1.000-1.030); Urobilinogen Urine Negative (Negative)
--- NOTE | 2021-04-06 06:28 | Electrocardiogram Report ---
Test Reason : Blood Pressure : / mmHG Vent. Rate : 073 BPM Atrial Rate : 073 BPM P-R Int : 138 ms QRS Dur : 098 ms QT Int : 406 ms P-R-T Axes : 061 011 030 degrees QTc Int : 447 ms Sinus rhythm with Premature atrial complexes Otherwise normal ECG When compared with ECG of 03-APR-2021 20:51, Premature atrial complexes are now Present T wave inversion no longer evident in Inferior leads Confirmed by Mario Johnson ([id number]) on 04/06/2021 6:28:11 AM Referred By: [facility] Confirmed By:Mario Johnson
[2021-04-06 08:11] LABS: Hematocrit (blood only) 36.6 % (42-52); Hemoglobin 12.2 g/dL (14.0-18.0); Immature Granulocytes # (auto) 0.04 K/uL (0.00-0.02); Immature Granulocytes % (auto) 0.5 %; Lymphocytes # (auto) 0.53 K/uL (1.2-3.4); Lymphocytes % (auto) 6.3 %; Mean Corpuscular Hemoglobin 30.4 pg (25-34); Mean Corpuscular Hgb Conc 33.3 g/dL (32-36); Mean Corpuscular Volume 91.3 fL (80-100); Mean Platelet Volume 10.6 fL (7.4-10.4); Monocytes # (auto) 0.47 K/uL (0.11-0.59); Monocytes % (auto) 5.6 %; Neutrophils # (auto) 7.41 K/uL (1.4-6.5); Neutrophils % (auto) 87.6 %; Platelet Count 306 K/uL (130-400); RDW Coefficient of Variation 12.9 % (11.5-14.5); RDW Standard Deviation 43.5 fL (36.4-46.3); Red Blood Count 4.01 M/uL (4.7-6.1); White Blood Count 8.45 K/uL (4.8-10.8)
[2021-04-06 08:46] LABS: BUN Creatinine Ratio 34.4 (10-20); Calcium 7.9 mg/dl (8.5-10.1); Creatinine Clr Calc Pharmacy 76.5 ml/min; Est GFR (African American) 84.6 ml/min; Potassium 4.6 mmol/L (3.5-5.1)
[2021-04-06] MEDS ORDERED: predniSONE 20 MG TAB PO SCH (09:00)
[2021-04-06] MEDS ORDERED: ASPIRIN 81 MG ECTAB PO SCH (09:00)
[2021-04-06] MEDS: ENOXAPARIN INJ 40 MG/0.4 ML SYR SQ SCH (09:56)
[2021-04-06] MEDS: AZITHROMYCIN 500 MG in DEXTROSE 5% 250 ML IV SCH (10:02)
--- NOTE | 2021-04-06 19:09 | Discharge Summary ---
Date of Service April 06, 2021 Admission HPI Per Admitting Provider Pardeep Oneill is here from [facility] with 4 days of chills, rigors, malaise, weakness, fatigue and productive cough and shortness of breath. Overall he has been feeling, "not well". He has no significant prior medical history with the exception of BPH. He has been vaccinated against COVID-19 and flu. He does not have any sick contacts. 2 weeks ago he had a infection on his right hand and had it lanced. Social hx. 50 pack year history of smoking denies IVDU Admission Exam Per Admitting Provider Constitutional: well developed and well nourished; no acute distress Eyes: PERRL, conjunctivae normal, anicteric sclerae ENMT: external ear and nose normal, oropharynx normal Neck: normal visual inspection Respiratory: normal respiratory effort; no labored breathing Auscultation: + wheezes; no crackles, no rales and no rhonchi Cardiovascular: RRR, no murmur, no edema Gastrointestinal (Abdomen): normal bowel sounds, soft, nontender, no hepatosplenomegaly Skin: - left hand with raised erythematous are a over distal phalanx Neurologic: no focal motor deficits Psychiatric: A+Ox3, euthymic affect Principal Diagnosis COPD exacerbation Discharge Exam General: A&Ox3. NAD. Cooperative. HEENT: Atraumatic, normocephalic.Visual acuity and hearing grossly intact. Pulm: CTAB A&P. -wheezes, -rales, -rhonchi. Symmetrical chest rise. No increase work of breathing. No respiratory distress. Cardiac: RRR, -mrg. Radial pulses intact and symmetrical. Extremities: Warm, dry, without edema. Left third digit with no erythema/ swelling/pain. Discharge Data Allergies Allergy/AdvReac Type Severity Reaction Status Date / Time morphine Allergy Unknown Unknown Verified 04/03/21 21:37 Consultations 04/04/21 00:31 ED Decision to Admit Stat 04/05/21 08:24 Consult Cardiology Routine Hospital Course (1) COPD with acute exacerbation: To do as outpatient: 1. Continue aspirin 81 mg daily 2. Complete prednisone taper 3. Follow-up as outpatient with cardiology for ischemic evaluation (possible stress ECHO/chemical stress test) Acute on chronic COPD exacerbation Continue methylprednisolone decreased from 3 times daily> twice daily. Discharge on short burst of prednisone. Continue azithromycin x5-day dose DuoNebs as needed No PFTs available for review. Pt Thinks he had them before retirement and we're wnl bu not sure. Recommend follow-up PFTs once recovered. CXR: No consolidation to suggest pneumonia, nonspecific lower interstitial thickening, symmetrical bilateral hilar prominence nonspecific likely due to pulmonary vessels. Covid negative Flu A/flu B/RSV negative - Smoked cigarettes from age 17, no use in retirement (e-cigarettes). Average up to 2ppd. (2) Cellulitis of left hand: Possible L Hand Distal 3rd DIP Cellulitis Leukocytosis on admit, downtrending Lactate Negative Blood cultures pending - Reportedly with paronychia lanced 2 weeks prior to presentation - Full range of motion, NT on exam. No purulence or fluctuance, mild erythema/discoloration on admission - Resolved 04/05 and 04/06 - No additional abx at dc (3) Elevated troponin I level: Troponin elevation 0.188, suspect demand ischemia in the setting of COPD exacerbation versus cellulitis. Peaked at 3, then rapidly down trended 0.5 Echo reviewed, without territorial changes and with normal systolic function Cardiology consulted. Add aspirin 81 daily given risk factors, no beta-dev in the setting of mild hypertension, LDL well controlled. Outpatient nonischemic evaluation once recovered/outpatient stress echo versus perfusion study. Lipids: 123 Tri/cholesterol 133/LDL 77/HDL 31 (4) Dyslipidemia: (5) Acute renal insufficiency: Acute kidney injury Creatinine acutely elevated to 2.06 on admission - Clinically volume depleted. Continue IVFM Down trended and normalized -Voiding adequately (6) Shortness of breath: See above (7) BPH (benign prostatic hyperplasia): BPH Continue tamsulosin -Patient voiding adequately. Total Time Total Time Spent Total Time Spent (In Minutes): 31 minutes including documentation, direct patient care, and coordination of care. Discharge Plan Discharge Items [facility] Disposition: [facility] Reason For Visit: SHORTNESS OF BREATH Discharge Diagnosis: Acute COPD exacerbation Activity: Resume your previous activity Non-emergency contact: Primary Care Provider Call non-emergency contact if: you have any medication questions, your symptoms worsen, your pain is not controlled, your pain is worsening and you have a fever Follow-up/Referrals: Mary Ann ALFORD [Primary Care Provider] - Diet: Regular Addtl Attending Provider Instructions: You are seen in the hospital for an acute COPD exacerbation. You were treated with steroids and an antibiotic and improved and returned to your normal baseline. You have been discharged on a steroid taper as below. You completed antibiotics during admission and no additional antibiotics were recommended at time of discharge. You have been prescribed a prednisone taper. Please take prednisone 40mg daily by mouth for 3 days, then 30mg daily for 2 days, then 20mg daily x2 days, then 10mg daily x2 days then stop taking prednisone. On admission there was some concern as a potential infection at a prior site of paronychia, and irritation/infection next to the nail of her left third finger. This did not appear infected on reassessment, and did not show any signs of underlying pus or abscess. This improved with antibiotics during admission and additional antibiotics were not recommended at time of discharge. If this worsens, becomes painful, or spreading redness/erythema please have this reevaluated by the [facility]. You are noted to have an elevated troponin, a heart marker during admission. This marker increased, and then down trended suggested no ongoing cardiac ischemia/damage. Your risk factors for heart disease include prior tobacco use. Your case was discussed with cardiology, it is recommended that you have a outpatient nonischemic evaluation. This may include a stress echocardiogram or pharmacologic perfusion study. Due to your risk factors and concern for underlying coronary disease you have been prescribed aspirin. Please take aspirin 81 mg daily. Your kidney levels were increased during admission, these resolved and returned to normal day of discharge. You should have a follow-up appointment with the facility physician within 1 week of returning to the corrections facility. You should also have a outpatient cardiology follow-up within 1 month to be arranged by the corrections facility. If you develop any new or worsening symptoms including fever, chills, sweats, chest pain, chest pressure, difficulty breathing, uncontrolled nausea/vomiting, rash, wheezing, passing out or nearly passing out, bleeding, black/bloody bowel movements, or other new or concerning symptoms please be evaluated by the facility infirmary. Pending Studies at Discharge: No Stand-Alone Forms: My [facility] Skilled Items Patient informed of condition?: Yes Discharge Level of Care: Other Communicable Disease: No Discharge Prognosis: Stable Lines: None Urinary Catheter: No Medications and DC Order Prescriptions: New prednisone 20 mg Tablet See Rx Instructions .ROUTE .COMPLEX Qty: 24 RF: 0 aspirin 81 mg tablet,delayed release (DR/EC) 81 mg PO DAILY Qty: 30 RF: 0 Continued tamsulosin 0.4 mg Capsule 0.4 mg PO HS RF: 0 cyanocobalamin (vitamin B-12) 1,000 mcg/mL Solution 1,000 mcg SUBCUT WK RF: 0 acetaminophen 500 mg Tablet 500 mg PO TID PRN (Reason: alternate with ibuprofen) RF: 0 ibuprofen 600 mg Tablet 600 mg PO TID PRN (Reason: fever/body aches) RF: 0 Discharge Orders: Discharge Order (Routine); Ordered 04/06/21 Ordered By: Giancarlo Moran Admission Data Admit Date/Time: 04/04/21 00:56 Attending Provider: Giancarlo Moran Admit Provider: Mau Payan Primary Care Provider: Mary Ann ALFORD Other Providers: Erlin Loomis ; Mario Johnson Other Interventions: Discharge Summary Assessment (RN) Last Done: 04/06/21 14:00 Coding Level of Care Code D/C DAY MANAGEMENT >30 MINS Diagnoses COPD with acute exacerbation J44.1 Cellulitis of left hand L03.114 Elevated troponin I level R77.8 Dyslipidemia E78.5 Acute renal insufficiency N28.9 Shortness of breath R06.02 BPH (benign prostatic hyperplasia) N40.0
== END 2021-04-06 15:38 | DRG 191 ==
LOC: ED 20:35 → SUATTDRO 04-04 00:56 → EDINP 04-04 00:56 → 2N 04-05 09:13

== ENCOUNTER 2023-09-09 08:57 | Inpatient (IN) ==
--- NOTE | 2023-09-08 09:50 | Anesthesiology Consultation ---
Date of Service September 08, 2023 Assessment & Plan (1) Encounter for pre-operative examination: Chart Review Chart Review: Acceptable Risk for Surgery (pending anesthesiologist review of unconfirmed EKG DOS ) and Patient NOT seen in Pre Admission Testing -Infectious Disease screening: Per PAT nursing assessment on 08/20/23. Patient resides at [facility]. No known infectious disease contacts in past 10 days or current infectious disease symptoms. No recent travel outside the country. Preop Covid testing 09/04/23= negative. Covid test will be 5 days old by DOS- [employer] ordered for DOS History Surgery Operation Date: 09/09/23 10:50 Proposed Procedures p Percutaneous Endovascular Abdominal Aortic Aneurysm Repair - Jesus Kaur MD Height/Weight Height: 6 ft 2 in Weight: 81.647 kg Allergies Allergy/AdvReac Type Severity Reaction Status Date / Time morphine Allergy Unknown Unknown Verified 08/20/23 14:26 sulfamethoxazole Allergy Verified 08/20/23 14:26 [From Bactrim] trimethoprim [From Bactrim] Allergy Verified 08/20/23 14:26 OC [place] Allergy Contraindic Uncoded 08/20/23 14:26 ation Medications Home Medications Medication Instructions Recorded Confirmed Last Taken cyanocobalamin (vitamin B-12) 1,000 mcg subcut UD 04/03/21 08/20/23 Unknown 1,000 mcg/mL injection solution tamsulosin 0.4 mg capsule 0.4 mg PO HS 04/03/21 08/20/23 Unknown atorvastatin 40 mg tablet 40 mg PO HS 02/11/23 08/20/23 Unknown aspirin 81 mg tablet,delayed 81 mg PO QAM 08/20/23 08/20/23 Unknown release hydrocortisone 1 % topical cream 1 applic topical QID PRN Itching 08/20/23 08/20/23 Unknown Past Medical History Medical History (Updated 09/08/23 @ 09:46 by Lisa Llanos PA-C) AAA (abdominal aortic aneurysm) Per 07/31/23 A/P CTA= Fusiform dilation of the infrarenal abdominal aorta measures 5.7 x 5.4 cm. No dissection. 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; per ps note from 07/17/23, pt quit ~2014 Past Surgical History Surgical History Surgical history unknown Social History Smoking Status: Former smoker tobacco type: cigarettes Smoking End Date: ~2018 (per [facility] [place]/[place]) Testing Laboratory Results 09/03/23= WBC: 5.18 H/H: 13.4/41.5 PLATELETS: 280 SODIUM: 139 POTASSIUM: 3.9 CHLORIDE: 101 CO2: 27 BUN: 16 CREATININE: 1.09 GLUCOSE: 143 Electrocardiogram Date: 09/05/23 Findings: + SB @ (56bpm) Otherwise normal EKG unconfirmed- will need reviewed by anesthesiologist DOS Chest X-Ray Date: 09/03/23 Findings: + NAD Echocardiogram Date: 04/04/21 EF: 60-65% LV Function: normal RWMA: + none Other Findings: no LVH Valvular Disease: + MR (mild) Stress Test Date: 05/21/21 Type: exercise (ECHO) Negative stress echo and EKG for ischemia at 91% MPHR. 6.2 METS achieved Mildly blunted BP response to exercise. No arrhythmia. Study terminated due to fatigue. No chest pain reported Fair/poor exercise tolerance Other Testing Abdomen/Pelvis CTA 07/31/23= Fusiform dilation of the infrarenal abdominal aorta measures 5.7 x 5.4 cm. No dissection. No high-grade stenosis or arterial occlusion is identified. 2 cm right common iliac artery aneurysm. Colonic diverticulosis.
--- NOTE | 2023-09-09 07:57 | History & Physical Report ---
Date of Service September 09, 2023 Assessment & Plan (1) AAA (abdominal aortic aneurysm): Plan: Patient admitted for a PEVAR. I have discussed the risks options and benefits of the procedure with the patient. The patient understands the risks options and benefits and agrees to the procedure. History of Present Illness Chief Complaint: AAA Primary Care Provider: PRASHANTH Reese Mr. Oneill is an elderly male who presents to vascular surgery clinic today for follow-up appointment after undergoing a CTA abdomen and pelvis to evaluate his AAA. Patient states he is not significant changes in his health since being seen here few weeks ago. He denies any complaints or concerns at this time. His CTA performed at [facility] prior to today's appointment demonstrates an infrarenal abdominal aortic aneurysm measuring 5.7 cm in its largest diameter. Allergies Allergy/AdvReac Type Severity Reaction Status Date / Time morphine Allergy Unknown Unknown Verified 08/20/23 14:26 sulfamethoxazole Allergy Verified 08/20/23 14:26 [From Bactrim] trimethoprim [From Bactrim] Allergy Verified 08/20/23 14:26 OC [place] Allergy Contraindic Uncoded 08/20/23 14:26 ation Home Medications Medication Instructions Recorded Confirmed Type cyanocobalamin (vitamin B-12) 1,000 mcg subcut UD 04/03/21 08/20/23 History 1,000 mcg/mL injection solution tamsulosin 0.4 mg capsule 0.4 mg PO HS 04/03/21 08/20/23 History atorvastatin 40 mg tablet 40 mg PO HS 02/11/23 08/20/23 History aspirin 81 mg tablet,delayed 81 mg PO QAM 08/20/23 08/20/23 History release hydrocortisone 1 % topical cream 1 applic topical QID PRN Itching 08/20/23 08/20/23 History Past Med/Surg History Problem List Encounter for pre-operative examination AAA (abdominal aortic aneurysm) Medical History PAD (peripheral artery disease) AAA (see above) 2 cm right common iliac artery aneurysm per 07/2023 A/P CTA COPD (chronic obstructive pulmonary disease) 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 No dissection. BPH (benign prostatic hyperplasia) Dyslipidemia CKD (chronic kidney disease) Surgical History Surgical history unknown Social History Smoking Status: Former smoker Tobacco Type: Cigarettes Smoking End Date: ~2018 (per [facility] note in [place] from 07/17/23); Preferred Language: Unknown Communication Ability: Unknown Die Cast Operator Required: No Beliefs That Will Affect Care: None Current Living Situation: Other Current Living Situation Comment: [facility] [facility] Feels Safe at Home: Yes Assistive Devices: None Assistive Devices Comment: unknown Review of Systems All systems reviewed & are unremarkable except as noted in HPI & below Physical Exam Physical Exam: Constitutional: In general patient is a healthy-appearing well-nourished well- developed middle-aged male in no distress. He is alert and oriented without any focal deficits. His trachea is midline, his carotids do not demonstrate a bruit. His heart is regular, his lungs are decreased throughout but clear. His abdomen is soft and nontender with a large pulsatile mass appreciable in the mid abdomen to the left of midline, which feels to be about 6 cm in diameter. He has normoactive bowel sounds in all 4 quadrants. His brachial and radial pulses are +4. Femoral pulses are +3 on the left +2 on the right. Lower extremities distal pulses are +2. He has brisk capillary refill and no sign of distal ischemia.
[2023-09-09 09:55] LABS: Partial Thromboplastin Ratio 1.1; Partial Thromboplastin Time 30 Seconds (21-31)
[2023-09-09] MEDS: LACTATED RINGER'S 1,000 ML BAG IV SCH (10:42)
[2023-09-09] MEDS ORDERED: DEXAMETHASONE SOD INJ 4 MG/ML VIAL ONE (10:43)
[2023-09-09] MEDS ORDERED: ROCURONIUM BROMIDE 10 MG/ML 5 ML VIAL IV ONE (10:43)
[2023-09-09] MEDS ORDERED: LIDOCAINE 2% 2 ML VIAL/AMP(20MG/ML) INFIL ONE (10:43)
[2023-09-09] MEDS ORDERED: ONDANSETRON INJ 2 MG/ML 2 ML VIAL ONE (10:43)
[2023-09-09] MEDS ORDERED: PROPOFOL IV EMULSION 10 MG/ML 20 ML VIAL IV ONE (10:43)
[2023-09-09] MEDS ORDERED: SUGAMMADEX SODIUM 200 MG/2 ML VIAL IV ONE (10:44)
[2023-09-09] MEDS ORDERED: MIDAZOLAM HCL 1 MG/ML 2ML VIAL ONE (10:44)
[2023-09-09] MEDS ORDERED: fentaNYL citrate PF 100 MCG/2 ML VIAL ONE (10:44)
[2023-09-09] MEDS ORDERED: fentaNYL citrate PF 100 MCG/2 ML VIAL IV PRN (10:46)
[2023-09-09] MEDS ORDERED: ATROPINE SULFATE 0.1 MG/ML 10ML SYR IV PRN (10:46)
[2023-09-09] MEDS ORDERED: LABETALOL HCL IV 5 MG/ML 20ML IV PRN (10:46)
[2023-09-09] MEDS ORDERED: PROMETHAZINE HCL 6.25 MG in SODIUM CHLORIDE 0.9% 50 ML IV PRN (10:46)
[2023-09-09] MEDS ORDERED: FLUMAZENIL 0.1 MG/1 ML 10 ML VIAL IV PRN (10:46)
[2023-09-09] MEDS ORDERED: NALOXONE HCL 0.4 MG/1 ML VIAL/CARP IV PRN (10:46)
[2023-09-09] MEDS ORDERED: ePHEDrine sulfate 50 MG/ML AMP IV PRN (10:46)
[2023-09-09] MEDS ORDERED: ONDANSETRON INJ 2 MG/ML 2 ML VIAL IV PRN (10:46)
--- NOTE | 2023-09-09 14:50 | History & Physical Bridge Note ---
Date of Service September 09, 2023 History & Physical Bridge Note I have examined the patient, reviewed the History & Physical and in the interval since the performance of the History & Physical I have noted the following changes of clinical significance: no changes noted
[2023-09-09] MEDS: CEFAZOLIN 2,000 MG/15 ML SYR IV SCH (15:45)
[2023-09-09] MEDS ORDERED: ePHEDrine sulfate 50 MG/5 ML SYR ONE (15:58)
[2023-09-09] MEDS ORDERED: PHENYLEPHRINE 100MCG/ML 10ML SYR IV ONE (15:58)
[2023-09-09] MEDS ORDERED: HEPARIN SOD (PORCINE) 1000 UNIT/ML ONE (17:12)
--- NOTE | 2023-09-09 17:23 | Post Operative Brief Note ---
Immediate Post Op Note v1 Date of Surgery September 09, 2023 Pre & Post Diagnosis Operation Date: 09/09/23 11:40 Pre-Op Diagnosis: Abdominal Aortic Aneurysm Post-Op Diagnosis: Abdominal Aortic Aneurysm I identified the patient and participated in the time-out.: Yes Procedure Operation Date: 09/09/23 11:40 Actual Procedures p Percutaneous Endovascular Abdominal Aortic Aneurysm Repair, Ultrasound Localization of Bilateral Femoral Arteries, Right Iliac Extension, Mechanical Closure of Bilateral Femoral Arteries (Bilateral) - Jesus Kaur MD Surgeon Jesus Kaur MD Outdoor Advertising Leasing Agent MD Francis Estimated Blood Loss 30 Findings Consistent with Post-Op Diagnosis Drains Sanchez Catheter Anesthesia Type General Complications none Disposition Accompanied Patient To Recovery: No Disposition: Recovery Room
--- NOTE | 2023-09-09 17:32 | Procedure Note ---
Angiogram Post Procedure Fluoroscopy Time (minutes): 16.2 Radiation (mGy): 254 Contrast: 90 Post Operative Report Pre & Post Diagnosis Operation Date: 09/09/23 11:40 Pre-Op Diagnosis: Abdominal Aortic Aneurysm Post-Op Diagnosis: Abdominal Aortic Aneurysm I identified the patient and participated in the time-out.: Yes Procedure Operation Date: 09/09/23 11:40 Actual Procedures p Percutaneous Endovascular Abdominal Aortic Aneurysm Repair, Ultrasound Localization of Bilateral Femoral Arteries, Right Iliac Extension, Mechanical Closure of Bilateral Femoral Arteries (Bilateral) - Jesus Kaur MD Surgeon Jesus Kaur MD Environmental Studies Department Chair MD Francis Estimated Blood Loss 30 Findings See Below Patent EVAR with bilateral renal and internal iliac arteries open with palpable femoral pulses at end of case. The patient had bilateral signals in the feet at completion of the Fluids see anesthesia Specimens none Drains none Anesthesia Type General Complications none Disposition Accompanied Patient To Recovery: Yes Disposition: Recovery Room Indications infrarenal abdominal aortic aneurysm Description of Procedure The patient was brought to the operating room and placed supine on the operating table. Anesthesia placed a arterial line as well as monitoring devices and general anesthesia was induced. The patient's bilateral groins were prepped and draped in a standard sterile fashion. Using ultrasound guidance the right femoral bifurcation and common femoral artery were identified and a 18-gauge needle was placed into the right common femoral artery and a J-wire was inserted through the needle. A Manta measuring sheath was placed over the J-wire and the depth was obtained. Then the Manta sheath was removed and over the J-wire an 8 R[place]an sheath was placed into the femoral artery and the sheath was flushed after the dilator and wire was removed. Then attention was turned to the left groin and under ultrasound guidance the left common femoral artery and femoral bifurcation was identified and and a 18-gauge needle was placed into the right common femoral artery and a J-wire was inserted through the needle. A Manta measuring sheath was placed over the J-wire and the depth was obtained. Then the J-wire was removed through the Manta sheath and replaced with an angled Glidewire and then the Manta sheath was removed and exchanged for an 8 [place]an sheath the sheath was flushed once the dilator was removed. Then using a Kumpe catheter over angled glide wires to the 8 [place]an sheath bilaterally Valerie wires were placed into the descending aorta the Kumpe catheters were removed and the left groin 8 [place]an sheath was exchanged for a 12 [place]an sheath and in the right groin the 8 [place] sheath was first exchanged to a 16 [place] dilator and then an 18 [place] sheath over the Valerie wire. The left groin then had a pigtail catheter placed in the T12-L1 region and the [place] excluder conformable 28 x 14 x 12 main body device was put through the right groin 18 [place] sheath into the infrarenal aorta. A angiogram was taken using power injector which demonstrated patent renal arteries with right lower than left and using the right renal artery as a guide the [place] main body was deployed just inferior to the right renal artery. A angiogram was performed which demonstrated patency of bilateral renal arteries after the main body graft was partially deployed and the constraint was removed. Then the pigtail catheter was exchanged over an angled Glidewire for a Kumpe catheter and the contralateral gate was cannulated via the left groin the catheter was able to spin freely in the main body of the graft denoting that we were in fact inside the graft and the angle Glidewire was exchanged for a Valerie wire the Kumpe was removed and a pigtail was placed. The 12 [place]an sheath was pulled back and an angiogram was taken to identify the iliac bifurcation. Then the pigtail was exchanged over the wire wire for a 14 x 12 [place] limb which was placed in the left iliac system landing just proximal to the iliac bifurcation. Then attention was returned to the right groin and the main body was fully deployed and a 23 x 12 [place] limb was placed in the right iliac system after performing angiogram to identify the location of the iliac bifurcation. Then a [place] mob balloon was utilized to balloon the proximal neck the contralateral gate overlap and the distal landing zone of the left limb and then the [place] mob balloon was placed over the Valerie wire in the right side to balloon the overlap of the 2 stents and the distal iliac landing zone. The pigtail was placed over the left wire wire and that wire was removed and a completion angiogram was performed to identify patent bilateral renal arteries no type Ia endoleak patent bilateral internal iliac arteries and no type Ib endoleak's. No type III endoleak was noted. The patient then had an angled Glidewire placed inside the pigtail and the pigtail was removed from the left side. Then the 12 [place]an sheath on the left was exchanged for a small Manta closure device which was deployed and the groin was hemostatic. The 18 [place]an sheath on the right was then exchanged for a larger Manta device which was deployed without difficulty and the groin was also hemostatic. A running 4-0 Monocryl was utilized in both groins to close the skin layer after placement of per clot in both groin incisions. Pressure dressings were placed over the groins at the end of the case. The patient was awoken from anesthesia and taken to recovery. The patient tolerated the proced ure well. Dr. Kaur was present and scrubbed for the entire procedure. I attest to the content of the Intraoperative Record and any orders documented therein. Any exceptions are noted below.
[2023-09-09] MEDS: VISIPAQUE IV PRN (17:34)
[2023-09-09] MEDS: ARISTA ABSORBABLE HEMOSTAT 3GM TOP ONE (17:47)
--- NOTE | 2023-09-09 18:41 | Anesthesiology Progress Note ---
Date of Service September 09, 2023 Anesthesia Post Procedure Vital Signs Vital Signs: Temp Pulse Pulse Resp BP BP Pulse Ox 09/09/23 18:30 64 15 130/62 135/55 L 97 09/09/23 18:20 36.2 C L 61 13 128/64 132/54 L 96 09/09/23 18:10 60 16 118/55 L 143/56 H 98 09/09/23 18:00 64 12 127/56 L 148/59 H 98 09/09/23 17:50 68 17 133/52 L 141/57 H 95 09/09/23 17:42 36.1 C L 82 20 124/47 L 144/53 H 97 09/09/23 09:28 36.9 C 70 18 124/57 L 109/66 96 O2 Del Method O2 Flow Rate 09/09/23 18:30 Nasal Cannula 2 09/09/23 18:20 Nasal Cannula 2 09/09/23 18:10 Nasal Cannula 2 09/09/23 18:00 Nasal Cannula 2 09/09/23 17:50 Nasal Cannula 2 09/09/23 17:42 Nasal Cannula 2 09/09/23 09:28 Room Air Transfer of Care Handoff Completed per policy Notes Mental Status: alert / awake / arousable Patient Amnestic to Procedure: Yes Nausea / Vomiting: adequately controlled Pain: adequately controlled Airway Patency, RR, SpO2: stable & adequate BP & HR: stable & adequate Hydration State: stable & adequate Anesthetic Complications: no major complications apparent
[2023-09-09 18:42] LABS: Hematocrit (blood only) 37.1 % (42.0-52.0); Hemoglobin 12.6 g/dl (14.0-18.0)
[2023-09-09] MEDS ORDERED: ALBUTEROL HFA 8 GM INHALER INH PRN (19:13)
[2023-09-09] MEDS ORDERED: oxyCODONE/ACETAMINOPHEN 5mg/325mg TAB PO PRN (19:13)
[2023-09-09] MEDS ORDERED: MoRPHine SULFATE 4 MG/ML 1 ML CARP\\VIAL IV PRN (19:13)
--- NOTE | 2023-09-09 19:13 | Critical Care Consultation ---
Date of Consultation September 09, 2023 Assessment & Plan (1) AAA (abdominal aortic aneurysm): (2) PAD (peripheral artery disease): (3) COPD (chronic obstructive pulmonary disease): (4) CKD (chronic kidney disease): (5) Dyslipidemia: Plan ICU CONSULT NOTE FORMAT: Reason Critically Ill: 68 YOM with history of AAA that under went endovascular repair today by Dr. Kaur- ICU postoperative monitoring Neuro - No acute needs CAM ICU: Negative - no focal deficits - sensation intact in all extremities Cardiac - AAA, S/P PEVAR, HLD, HTN - s/p PEVAR with bilateral groin pressure dressings- follow nuerovascular exams - hemodyanmics stable currently without vasopressor needs - telemetry reviewed NSR no ectopy - Continue ASA, Atorvastatin 40 Respiratory - Hx copd reported - no current inhalers as outpatient- will add ALVARO as needed GI - No acute needs - advance diet as tolerated RENAL/LYTES - CKD no recent labs since 2020 on file - BMP in morning - continue with D5 1/2 at 125 as ordered by primary service - No acute needs - remove dooley when appropriate ENDO - No acute needs HEME - No acute needs - Follow CBC - stable at 12.6 - no recent on file since 2020 ID - NO concern at this time for infectious etiology LINES/IV ACCESS - Meseret SIERRA Continue use of these lines DVT PROPHYLAXIS - SCDS, ambulation, ASA DISPO: ICU until hemodynamics are proven stable I have personally spent 45 minutes of critical care time in the direct management of this patient. This is a life/limb threatening event. This includes time spent evaluating patient, direct bedside care, chart review, placing orders, interpretation of diagnostic studies, discussion with consultants, patient, and family members, as well as other required patient management activities. This time is exclusive of all separately billable procedures, and teaching time and separate from and in addition to any other critical care service time. Thank you for allowing us to participate in the care of this patient. Please refer to my attending physician's documentation for any further recommendations. History of Present Illness Reason for Consultation: s/p PEVAR Requesting Physician: Jesus Kaur Attending Physician: Jesus Kaur MD History of Present Illness 68 YOM with medical hisltory of: AAA, HLD, Tobacco abuse, HTN, CKD, COPD. Patient is s/p Percutaneous Endovascular Abdominal Aortic Aneurysm Repair, Ultrasound Localization of Bilateral Femoral Arteries, Right Iliac Extension, Mechanical Closure of Bilateral Femoral Arteries (Bilateral) performed by Dr. Cam LEO reported as 30ml under genral anesthesia. Patient is to the ICU post recovery- awake alert, pain controlled, currently hemodyanmic profile favorable without any vasoactive medications and bilateral groin sites intact without hematomas. HGB post operative 12.6. Patient is to the ICU for monitoring of hemodyanmics, neurovascular exams and supportive care. CODE: FULL Allergies Allergy/AdvReac Type Severity Reaction Status Date / Time morphine Allergy Unknown Unknown Verified 08/20/23 14:26 sulfamethoxazole Allergy Verified 08/20/23 14:26 [From Bactrim] trimethoprim [From Bactrim] Allergy Verified 08/20/23 14:26 OC [place] Allergy Contraindic Uncoded 08/20/23 14:26 ation Home Medications Medication Instructions Recorded Confirmed Type cyanocobalamin (vitamin B-12) 1,000 mcg subcut UD 04/03/21 09/09/23 History 1,000 mcg/mL injection solution tamsulosin 0.4 mg capsule 0.4 mg PO HS 04/03/21 09/09/23 History atorvastatin 40 mg tablet 40 mg PO HS 02/11/23 09/09/23 History aspirin 81 mg tablet,delayed 81 mg PO QAM 08/20/23 09/09/23 History release hydrocortisone 1 % topical cream 1 applic topical QID PRN Itching 08/20/23 09/09/23 History Patient History Medical History PAD (peripheral artery disease) AAA (see above) 2 cm right common iliac artery aneurysm per 07/2023 A/P CTA COPD (chronic obstructive pulmonary disease) 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 No dissection. BPH (benign prostatic hyperplasia) Dyslipidemia CKD (chronic kidney disease) Surgical History Surgical history unknown Social History Smoking Status: Former smoker Tobacco Type: Cigarettes Smoking End Date: ~2018 (per [facility] [place]/17/[place]); Preferred Language: Unknown Communication Ability: Unknown Head Screen Worker Required: No Beliefs That Will Affect Care: None Current Living Situation: Other Current Living Situation Comment: [facility] [facility] Feels Safe at Home: Yes Assistive Devices: None Assistive Devices Comment: unknown Review of Systems Review of Systems: REVIEW OF SYSTEMS: Constitutional: No fever, sweats or chills Eyes: No diplopia, no worsening or blurred vision ENT: normal hearing, no trouble swallowing Respiratory: No cough, sputum, dyspnea at rest or on exertion Cardiovascular: No chest pain, tightness or palpitations Abdomen: No pain, nausea, vomiting, diarrhea or constipation Musculoskeletal: No joint pain, calf pain, swelling Neurologic: No weakness, numbness/tingling, or balance problems Psychiatric: No anxiety or depression Skin: No rash or itch Physical Exam Physical Exam: PHYSICAL EXAM: General: awake, alert, no apparent distress Head: Normocephalic, atraumatic ENT: PERRLA, EOMI, no pharyngeal exudate, mucous membranes moist Neuro: AAO x 3, speech clear and appropriate, strength intact bilaterally 5/5, sensation intact and equal all extremities and dermatomes, no pronator drift Chest: equal rise and fall of the chest, no accessory muscle use, no heaves or thrills, Clear to auscultation, on room air, Cardiac: Regular rate and rhythm, telemetry reviewed- NSR no ectopy, skin warm dry, cap refill <3 seconds, peripheral pulses +2 no JVD, no murmur, no edema, bilateral groin sites intact with pressure dressings- no hematoma noted- good peripheral pulses and extremities are warm bilaterally. GI: NABS x 4 quadrants, soft, nontender to palpation, no rebound, guarding or tenderness : Dooley to gravity, no pain, no CVA tenderness, Extremities: Normal inspection, no peripheral edema or erythema, calfs nontender to palpation Psych: Normal mood and affect Skin: no rash or erythema Results & Data Results & Data Vital Signs (Past 12 Hours) Vital Signs Temp Pulse Pulse Resp BP BP Pulse Ox 09/09/23 18:40 36.4 C L 63 13 127/58 L 133/56 L 98 09/09/23 18:30 64 15 130/62 135/55 L 97 09/09/23 18:20 36.2 C L 61 13 128/64 132/54 L 96 09/09/23 18:10 60 16 118/55 L 143/56 H 98 09/09/23 18:00 64 12 127/56 L 148/59 H 98 09/09/23 17:50 68 17 133/52 L 141/57 H 95 09/09/23 17:42 36.1 C L 82 20 124/47 L 144/53 H 97 09/09/23 09:28 36.9 C 70 18 124/57 L 109/66 96 O2 Del Method O2 Flow Rate 09/09/23 18:40 Nasal Cannula 2 09/09/23 18:30 Nasal Cannula 2 09/09/23 18:20 Nasal Cannula 2 09/09/23 18:10 Nasal Cannula 2 09/09/23 18:00 Nasal Cannula 2 09/09/23 17:50 Nasal Cannula 2 09/09/23 17:42 Nasal Cannula 2 09/09/23 09:28 Room Air Laboratory Results Abnormal lab results 09/09/23 09/09/23 Range/Units 09:06 18:00 Hgb 12.6 L (14.0-18.0) g/dl Hct 37.1 L (42.0-52.0) % Crossmatch See Detail Coding Level of Care Code 12214 CRITICAL CARE 1ST 30-74M Diagnoses AAA (abdominal aortic aneurysm) I71.40 PAD (peripheral artery disease) I73.9 COPD (chronic obstructive pulmonary disease) J44.9 CKD (chronic kidney disease) N18.9 Dyslipidemia E78.5
[2023-09-09] MEDS ORDERED: HYDROCORTISONE 1% CRM 30 GM TUBE EXT PRN (19:31)
[2023-09-09] MEDS: D5W AND 1/2NSS 1,000 ML IV SCH (19:56)
[2023-09-09] MEDS: ATORVASTATIN 40 MG TAB PO SCH (21:02)
[2023-09-09] MEDS: TAMSULOSIN HCL 0.4 MG CAP PO SCH (21:02)
--- OUTSIDE RECORDS SUMMARY | 2023-09-09 21:30 | External Medical Summary | Continuity of Care Document ---
Author Name Unknown Organization [facility] [address] Address [address] [place], [place] [id number] [id number] Date(s): 08/06/23 - 08/06/23 [facility] [address], [address] [place] [address] [phone] Encounter Diagnosis AAA (abdominal aortic aneurysm)(Discharge Diagnosis) - 08/06/23 Discharge Disposition: Home or Self Care Attending Physician: MD Kaur Eugene J Allergies, Adverse Reactions, Alerts Substance Reaction Severity Status morphine Vomiting Active Bactrim Unknown Active Assessment and Plan Extracted from: Title:Clinical Document Author:IAIN Albrecht Lynn Date:08/06/23 [facility] OUTPATIENT NOTE Name: JACIEL TAY Patient Number: [id number] : 1955 Date of Service: 08/06/2023 Chief Complaint: _Follow-up after CTA HPI: _Mr. Tay is an elderly male who presents to Dr. Kaur vascular surgery clinic today for follow-up appointment after undergoing a CTA abdomen and pelvis to evaluate his AAA. Patient states he is not significant changes in his health since being seen here few weeks ago. He denies any complaints or concerns at this time. His CTA performed at [facility] prior to today's appointment demonstrates an infrarenal abdominal aortic aneurysm measuring 5.7 cm in its largest diameter. Current Home Meds: (Last Updated 08/05 10:59) aspirin (aspirin 81 mg oral tablet, chewable) 81 mg PO Daily atorvastatin (atorvastatin 40 mg oral tablet) 40 mg PO Daily cyanocobalamin (Vitamin B12 1000 mcg/mL injectable solution) 1,000 mcg subQ [id number] tamsulosin (tamsulosin 0.4 mg oral capsule) 0.4 mg PO Daily Allergies and Sensitivities: morphine(Vomiting) Bactrim(Unknown) Past Medical History: Problems: AAA (abdominal aortic aneurysm) OBJECTIVE Vitals: Last Updated 07/17/23 08:59 Date Temp BP Location Pulse RR SpO2 Pain 07/17/23 118/60 Right Arm 0 07/17/23 124/62 Left Arm 80 96 Vital Signs are the last 3 documented. No Orthostatic Data Available Height and Weight: Last Updated 07/17/23 08:54 Date BMI Wt(kg) Wt(lb) Method Ht(cm) (ft-in) Method 07/17/23 23.16 81.81 180 Standing Scale 187.96 6-2 Heights and Weights are the last 3 documented. Physical Exam Constitutional: In general patient is a healthy-appearing well-nourished well-developed elderly male no distress. He is alert and oriented without focal deficits. His heart is regular, his lungs are clear. His carotids which are bruit. His abdomen soft nontender, active bowel sounds in all 4 quadrants. His aneurysm is palpable. His L lower extremities a pulses are +2. ASSESSMENT: _ PLAN: _ 1 ) _abdominal aortic aneurysm Patient does have a large infrarenal abdominal aortic aneurysm measuring 5.7 cm in its largest diameter. The orientation of this does allow for an endovascular repair. Therefore we discussed percutaneous endovascular abdominal aortic aneurysm repair with the patient in the office today. I discussed the risks options alternatives and benefits of the surgery with patient at Dr. Kaur's request. Patient expresses understanding and agreement to proceed. This will occur in the next 2 weeks. We did recommend that he undergo an echocardiogram prior to surgery to evaluate his heart function. The last imaging that we were able to obtain was an exercise stress test performed [facility] in April 2021, which was essentially normal. Thank you for letting us participate in the care of this patient. I have personally [id number]___ minutes performing [id number] and wtv-vxyn-zy-face activities on this date of service.Time does not include separately reported services. Activities Include: x__ review of the medical record _x_ obtaining a history _x_ physical exam/evaluation _x_ review labs _x_ review radiology reports _x_ counseling/educating patient/family/caregiver __ discussion/referral to other healthcare professional x__ documenting care in the medical record __ independent interpretation of results x__ communication of results to patient/family/caregiver x__ coordination of care Medications aspirin 81 mg oral tablet, chewable Start: 07/17/23 8:51:00 EDT, 1 tab, PO, Daily Start Date: 07/17/23 Status: Ordered atorvastatin 40 mg oral tablet Start: 07/17/23 8:51:00 EDT, 1 tab, PO, Daily Start Date: 07/17/23 Status: Ordered tamsulosin 0.4 mg oral capsule Start: 07/17/23 8:50:00 EDT, 1 cap, PO, Daily Start Date: 07/17/23 Status: Ordered Vitamin B12 1000 mcg/mL injectable solution Start: 07/17/23 8:50:00 EDT, 1,000 mcg =, subQ, [id number] Start Date: 07/17/23 Status: Ordered Problem List Condition Confirmation Course Effective Dates Status Health St atus Informant AAA (abdominal aortic aneurysm) Confirmed Active Diagnosis Diagnosis Type Effective Dates Health Status Cl inical Service Informant AAA (abdominal aortic aneurysm) Discharge Diagnosis 08/06/23 Social History Social History Type Response Smoking Status Former Smoker, quit > 1 yr Sex Male [facility] Outpt Note * IAIN Albrecht Lynn: PERFORM Event Display: [facility] Outpt Note Authored Date: [id number] [facility] OUTPATIENT NOTE Name: JACIEL TAY Patient Number: [id number] : 1955 Date of Service: 08/06/2023 Chief Complaint: _Follow-up after CTA HPI: _Mr. Tay is an elderly male who presents to Dr. Kaur vascular surgery clinic today for follow-up appointment after undergoing a CTA abdomen and pelvis to evaluate his AAA. Patient states he is not significant changes in his health since being seen here few weeks ago. He denies any complaints or concerns at this time. His CTA performed at [facility] prior to today's appointment demonstrates an infrarenal abdominal aortic aneurysm measuring 5.7 cm in its largest diameter. Current Home Meds: (Last Updated 08/05 10:59) aspirin (aspirin 81 mg oral tablet, chewable) 81 mg PO Daily atorvastatin (atorvastatin 40 mg oral tablet) 40 mg PO Daily cyanocobalamin (Vitamin B12 1000 mcg/mL injectable solution) 1,000 mcg subQ [id number] tamsulosin (tamsulosin 0.4 mg oral capsule) 0.4 mg PO Daily Allergies and Sensitivities: morphine(Vomiting) Bactrim(Unknown) Past Medical History: Problems: AAA (abdominal aortic aneurysm) OBJECTIVE Vitals: Last Updated 07/17/23 08:59 Date Temp BP Location Pulse RR SpO2 Pain 07/17/23 118/60 Right Arm 0 07/17/23 124/62 Left Arm 80 96 Vital Signs are the last 3 documented. No Orthostatic Data Available Height and Weight: Last Updated 07/17/23 08:54 Date BMI Wt(kg) Wt(lb) Method Ht(cm) (ft-in) Method 07/17/23 23.16 81.81 180 Standing Scale 187.96 6-2 Heights and Weights are the last 3 documented. Physical Exam Constitutional: In general patient is a healthy-appearing well-nourished well- developed elderly male no distress. He is alert and oriented without focal deficits. His heart is regular, his lungs are clear. His carotids which are bruit. His abdomen soft nontender, active bowel sounds in all 4 quadrants. His aneurysm is palpable. His L lower extremities a pulses are +2. ASSESSMENT: _ PLAN: _ 1 ) _abdominal aortic aneurysm Patient does have a large infrarenal abdominal aortic aneurysm measuring 5.7 cm in its largest diameter. The orientation of this does allow for an endovascular repair. Therefore we discussed percutaneous endovascular abdominal aortic aneurysm repair with the patient in the office today. I discussedthe risks options alternatives and benefits of the surgery with patient at Dr. Kaur's request. Patient expresses understanding and agreement to proceed. This will occur in the next 2 weeks. We did recommend that he undergo an echocardiogram prior to surgery to evaluate his heart function. The last imaging that we were able to obtain was an exercise stress test performed [facility] in April 2021, which was essentially normal. Thank you for letting us participate in the care of this patient. I have personally [id number]___ minutes performing [id number]-qp-mrmg and pig-tfjr-xa-face activities on this date of service.Time does not include separately reported services. Activities Include: x__ review of the medical record _x_ obtaining a history _x_ physical exam/evaluation _x_ review labs _x_ review radiology reports _x_ counseling/educating patient/family/caregiver __ discussion/referral to other healthcare professional x__ documenting care in the medical record __ independent interpretation of results x__ communication of results to patient/family/caregiver x__ coordination of care Electronic Signature on File Electronically Reviewed/Signed by: Soumya Albrecht PA-C Author Signature Dt/Tm:08/06/2023 11:45 AM [facility] [place] [address], [address] [place] [address] Patient Care team information Care Team Personnel Name: IAIN Albrecht Lynn Position: Physician Director Blood Bank Exempt - Vasc Surg Member Role: Lifetime Relationship Address: Address: [address] [place] [address] [address] [place] [address]
[2023-09-09] MEDS: ceFAZolin 2000MG 2,000 MG/15 ML SYR IV SCH (23:49)
[2023-09-10 04:57] LABS: Basophils # (auto) 0.02 K/uL (0.00-0.20); Basophils % (auto) 0.2 %; Hematocrit (blood only) 34.2 % (42.0-52.0); Immature Granulocytes # (auto) 0.05 K/uL (0.01-0.20); Immature Granulocytes % (auto) 0.6 %; Lymphocytes # (auto) 0.47 K/uL (1.20-3.40); Lymphocytes % (auto) 5.3 %; Mean Corpuscular Hemoglobin 29.1 pg (25.0-34.0); Mean Corpuscular Hgb Conc 35.1 g/dL (32.0-36.0); Mean Platelet Volume 9.9 fL (9.4-12.4); Monocytes # (auto) 0.43 K/uL (0.11-0.59); Monocytes % (auto) 4.8 %; Neutrophils # (auto) 7.94 K/uL (1.40-6.50); Neutrophils % (auto) 89.1 %; Platelet Count 249 K/uL (130-400); RDW Coefficient of Variation 12.4 % (11.5-14.5); RDW Standard Deviation 37.7 fL (36.4-46.3); Red Blood Count 4.12 M/uL (4.70-6.10); White Blood Count 8.91 K/ul (4.8-10.8)
[2023-09-10 05:13] LABS: BUN Creatinine Ratio 15.7 (10-20); Calcium 8.5 mg/dl (8.6-10.3); Creatinine Clr Calc Pharmacy 96.1 ml/min; Est GFR (African American) 106.3 ml/min; Est GFR (Non-African American) 91.7 ml/min; Potassium 4.2 mmol/L (3.5-5.1)
--- NOTE | 2023-09-10 08:22 | Surgery Progress Note ---
Date of Service September 10, 2023 Assessment & Plan (1) AAA (abdominal aortic aneurysm): Plan: Post op day #1 from a PEVAR. There are no complications from the procedure. D/C today. Admission and Anticipated Discharge Date Admission Date: September 09, 2023 Subjective No complaints Physical Exam Constitutional: WD/WN, vitals as above Respiratory: normal respiratory effort; no respiratory distress Cardiovascular: Rate/Rhythm: regular rate and regular rhythm Vessels: normal peripheral pulses Gastrointestinal (Abdomen): Inspection/Auscultation: abdomen normal to inspection; abdomen not distended Percussion/Palpation: abdomen soft; abdomen nontender Skin: + incision (puncture sites clean and dry ) Psychiatric: Orientation: alert and oriented x 3 Results & Data Vital Signs (Past 12 Hours) Vital Signs Pulse Resp BP Pulse Ox 09/10/23 06:00 61 14 134/67 93 09/10/23 05:00 53 L 12 132/69 93 09/10/23 04:00 56 L 15 132/66 95 09/10/23 03:00 65 17 121/64 90 09/10/23 02:00 56 L 14 121/62 93 09/10/23 01:00 57 L 17 129/64 93 09/10/23 00:44 75 09/10/23 00:00 64 15 135/62 94 09/09/23 23:00 62 23 132/63 94 09/09/23 22:00 58 L 23 137/68 94 09/09/23 21:00 70 16 124/56 L 93
[2023-09-10] MEDS: CYANOCOBALAMIN 1000 MCG/ML VIAL SC SCH (08:29)
[2023-09-10] MEDS: ASPIRIN 81 MG ECTAB PO SCH (08:30)
--- NOTE | 2023-09-10 08:50 | Discharge Summary ---
Date of Service September 10, 2023 Admission HPI Per Admitting Provider Mr. Oneill is an elderly male who presents to vascular surgery clinic today for follow-up appointment after undergoing a CTA abdomen and pelvis to evaluate his AAA. Patient states he is not significant changes in his health since being seen here few weeks ago. He denies any complaints or concerns at this time. His CTA performed at [facility] prior to today's appointment demonstrates an infrarenal abdominal aortic aneurysm measuring 5.7 cm in its largest diameter. Admission Exam Per Admitting Provider Constitutional: In general patient is a healthy-appearing well-nourished well- developed middle-aged male in no distress. He is alert and oriented without any focal deficits. His trachea is midline, his carotids do not demonstrate a bruit. His heart is regular, his lungs are decreased throughout but clear. His abdomen is soft and nontender with a large pulsatile mass appreciable in the mid abdomen to the left of midline, which feels to be about 6 cm in diameter. He has normoactive bowel sounds in all 4 quadrants. His brachial and radial pulses are +4. Femoral pulses are +3 on the left +2 on the right. Lower extremities distal pulses are +2. He has brisk capillary refill and no sign of distal ischemia. Principal Diagnosis AAA Discharge Exam Constitutional: In general patient is a healthy-appearing well-nourished well- developed middle-aged male in no distress. He is alert and oriented without any focal deficits. His trachea is midline, his carotids do not demonstrate a bruit. His heart is regular, his lungs are decreased throughout but clear. His abdomen is soft and nontender with a large pulsatile mass appreciable in the mid abdomen to the left of midline, which feels to be about 6 cm in diameter. He has normoactive bowel sounds in all 4 quadrants. His brachial and radial pulses are +4. Femoral pulses are +3 on the left +2 on the right. Lower extremities distal pulses are +2. He has brisk capillary refill and no sign of distal ischemia. Constitutional WD/WN, vitals as above Respiratory normal respiratory effort; no respiratory distress Cardiovascular Rate/Rhythm: regular rate and regular rhythm Vessels: normal peripheral pulses Gastrointestinal (Abdomen) Inspection/Auscultation: abdomen normal to inspection; abdomen not distended Percussion/Palpation: abdomen soft; abdomen nontender Skin + incision (puncture sites clean and dry) Psychiatric Orientation: alert and oriented x 3 Discharge Data Allergies Allergy/AdvReac Type Severity Reaction Status Date / Time morphine Allergy Unknown Unknown Verified 08/20/23 14:26 sulfamethoxazole Allergy Verified 08/20/23 14:26 [From Bactrim] trimethoprim [From Bactrim] Allergy Verified 08/20/23 14:26 [place] Allergy Contraindic Uncoded 08/20/23 14:26 ation Consultations 09/09/23 19:13 Consult Auto Motor Mechanic Routine Procedures Performed Operation Date: 09/09/23 11:40 Actual Procedures p Percutaneous Endovascular Abdominal Aortic Aneurysm Repair, Ultrasound Localization of Bilateral Femoral Arteries, Right Iliac Extension, Mechanical Closure of Bilateral Femoral Arteries (Bilateral) - Jesus Kaur MD Ordered Studies 09/09/23 07:30 EV aorto bi iliac repair Routine US EV guide vascular access Routine Hospital Course (1) AAA (abdominal aortic aneurysm): Post op day #1 from a PEVAR. There are no complications from the procedure. D/C today. Total Time Total Time Spent Total Time Spent (In Minutes): 0 Discharge Plan Discharge Items [facility] Disposition: [facility] Reason For Visit: AAA Discharge Diagnosis: 1. s/p PEVAR 2. AAA Activity: Per Instructions section Non-emergency contact: Surgeon Call non-emergency contact if: your temperature is above 101.5, your wound has increased redness, your wound has increased drainage and your wound pain has increased Follow-up/Referrals: Mary Ann ALFORD [Primary Care Provider] - Diet: Heart Healthy Addtl Attending Provider Instructions: SPECIAL CARE INSTRUCTIONS: Medications: * Continue to take your medications as directed. Incision/Puncture Site Care: * You will have an incision or puncture in each of your groins. Liquid glue will be used to seal your incisions/puncture site. This will lift off as the incisions/puncture sites heal. * If Liquid glue is not used, there will be small dressings covering your incisions. After you get home, you may remove the dressings and shower - allowing the warm soapy water to run over it. * Be sure to dry the sites well and keep them dry. * DO NOT SOAK IN A TUB/POOL/etc. UNTIL ALL SURGICAL SITES ARE HEALED. DO NOT REMOVE THE GLUE UNTIL THE INCISIONS HEAL. Restrictions: * Limit yourself to kiss setter hand activity for the first week. * You may walk and go up and down steps. * Avoid excessive bending or movement at the level of the incisions or punctures. Risks and Possible Complications: * Infection/Drainage/Bleeding - Drainage or bleeding from the incisions/p uncture site should be minimal. If you have excessive bleeding or drainage, call our office ([phone]) right away. * Pain/Numbness - You may experience some mild pain or soreness at your incision sites. You may also have some numbness around the incisions or into the insides of your thighs. Bruising is normal and should resolve within 2 weeks. * Changes in Appetite or Bowel Habits - Mostly related to anesthesia and pain medication, some patients have reported decreased appetite and/or problems with constipation. These symptoms usually improve over a few weeks. Remembering to take an ahzz-smw-[id number] stool softener, as directed, will help you to avoid constipation. Call our office and seek emergent treatment if you develop: * Fever or chills * Have a temperature greater than 101 degrees F * Any redness or purulent drainage from your incisions or punctures * Severe abdominal, chest or back pain SKIN IRRITATION: * You may experience some redness and/or swelling in the area where radiation was administered. If any skin irritation occurs, please contact your family physician. You will be receiving a call from the Vascular Surgery Nurse after you are discharged. FOLLOW UP VISIT: It is important for you to keep your follow up appointments with your medical provider. Keep any scheduled doctor appointments. Call [phone] to schedule a follow up appointment if one not already scheduled. Pending Studies at Discharge: No Stand-Alone Forms: My [facility] Skilled Items Patient informed of condition?: Yes Discharge Level of Care: Other Communicable Disease: No Discharge Prognosis: Improving Lines: None Urinary Catheter: No Medications and DC Order Prescriptions: Continued atorvastatin 40 mg tablet 40 mg PO HS tamsulosin 0.4 mg Capsule 0.4 mg PO HS cyanocobalamin (vitamin B-12) 1,000 mcg/mL Solution 1,000 mcg SUBCUT UD Rx Instructions: once weekly, every 4 weeks, on wednesdays hydrocortisone 1 % Cream 1 applic TOPICAL QID PRN (Reason: Itching) aspirin 81 mg tablet,delayed release (DR/EC) 81 mg PO QAM Discharge Orders: Discharge Order (Routine); Ordered 09/10/23 Ordered By: Jesus Kaur Admission Data Admit Date/Time: 09/09/23 14:48 Attending Provider: Jesus Kaur Admit Provider: Jesus Kaur Primary Care Provider: Mary Ann ALFORD Other Providers: Cesar Soares; Mitesh Gama; Gerber Angel; Bill Wilks; Dino Garay; Stephanie Michel; Ramakrishna Landry; Yashira Shah; Anila Sanchez; Fred Kohli; Heath Roberts; Baylee William
== END 2023-09-10 12:53 | DRG 269 ==
LOC: ASU 08:57 → 1E 14:48